=== PATIENT | female | born 1975 | race Caucasian/White ===

== ENCOUNTER 2020-06-18 12:19 | Emergency (ER) | payer OTHER, SELFPAY ==
[2020-06-18 12:45] VITALS: BP 144/85; PULSE 99; RESP 15; TEMP 36.6; O2SAT 99; BMI 32.5
--- NOTE | 2020-06-18 13:44 | ED_ITS ---
HPI - Ear Problem General Chief complaint: Ear Problems Stated complaint: ear pain Time Seen by Provider: 06/18/20 13:35 Source: patient Mode of arrival: ambulatory Limitations: no limitations History of Present Illness HPI Narrative: Bilateral Ear pain x1 week. History of otitis media. Feels similar. No drainage, fevers, chills, body aches, cough. MD Complaint: ear pain Location: bilateral Duration: constant Severity: moderate Relieving factors: nothing Exacerbating factors: nothing Discharge from ear: no Treatment prior to arrival: none Related Data Previous Rx's Medication Instructions Recorded cefpodoxime 200 mg PO Q12H #14 tab 06/18/20 ciprofloxacin-dexamethasone 4 drp OTIC (EARS) BID 7 Days #7.5 06/18/20 [Ciprodex] ml ibuprofen 600 mg PO Q8H PRN #20 tab 06/18/20 Allergies Allergy/AdvReac Type Severity Reaction Status Date / Time penicillin V Allergy Unknown almost Unverified 09/22/18 00:00 dies when child afte r PCN while in hospital Penicillins [PENICILLINS] Allergy Unknown ANAPHYLAXIS Unverified 03/15/20 18:36 Review of Systems Review of Systems: Yes all other systems are reviewed and are negative Constitutional: Constitutional: Reports no additional constitutional complaints, Denies body ache(s), Denies chills, Denies fever(s), Denies headache(s) and Denies weakness Eyes: Eyes: Reports no additional eye complaints and Denies change in vision ENT: Reports system reviewed and no additional complaints, except as documented, Denies dizziness, Denies ear discharge, Reports otalgia, Denies headache(s), Denies nasal congestion, Denies nasal discharge and Denies neck pain Cardiovascular: Cardiovascular: Reports no additional cardiovascular complaints, Denies chest pain, Denies leg edema and Denies dyspnea Respiratory: Respiratory: Reports no additional respiratory complaints, Denies cough and Denies dyspnea Gastrointestinal: Gastrointestinal: Reports no additional gastrointestinal complaints, Denies abdominal pain, Denies diarrhea, Denies nausea and Denies vomiting Genitourinary: Genitourinary: Reports no additional female genitourinary complaints and Denies urinary incontinence Musculoskeletal: Musculoskeletal: Reports no additional musculoskeletal complaints, Denies back pain, Denies arthralgias, Denies joint swelling, Denies neck pain, Denies numbness and Denies tingling Integumentary/Breasts: Skin/Breast: Reports system reviewed and no additional complaints, except as docu and Denies rash Neurologic: Reports system reviewed and no additional complaints, except as documented, Denies Abnormal speech present, Denies dizziness, Denies headache(s), Denies numbness, Denies tingling and Denies weakness PMFSH Past Medical History Attestation statement: The following information was validated with the patient. Source: old records reviewed and nursing notes reviewed Social History Social History Advance Directives: No Advance Directives Information Provided: No Physical Exam Vital Signs: Vital Signs: Last Vital Signs Temp 98 F 06/18/20 12:45 Pulse 99 06/18/20 12:45 Resp 15 06/18/20 12:45 BP 144/85 H 06/18/20 12:45 Pulse Ox 99 06/18/20 12:45 Body Mass Index 32.5 Const: General: cooperative, healthy appearing, comfortable and no acute distr ess Orientation/consciousness: patient oriented x3 Limitations: no limitations HENMT: Head: Yes normal to inspection Ears: hearing grossly normal bilaterally, mastoids normal, no periauricular adenopathy and TM abnormal (Bilateral) bulging, dull, erythematous and with loss of landmarks General nose exam: Normal external nose present Face and sinus: Yes normal facial exam Mouth: Normal oral and palatal mucosa present Throat: Yes posterior oropharynx normal Eyes: General: appearance normal, both eyes and all related structures Pupils: Equal, round and reactive pupils present Neck: Neck: Yes normal visual inspection Chest: Chest palpation & inspection: normal inspection of the chest Resp: Effort & Inspection: normal respiratory effort Auscultation: clear to auscultation bilaterally Cardio: Rate: regular rate Rhythm: regular rhythm Peripheral pulses: Peripheral pulses 2+ throughout GI: Inspection: Yes normal to inspection Palpation (GI): Soft to palpation and nontender Auscultation: normal bowel sounds Back/Spine/Pelvis: Thoracic/Lumbar Spine: thoracic and lumbar spine normal to inspection Skin: General skin exam: no rashes or lesions noted Neuro: General: patient oriented x3, no focal motor deficits and normal sensation to monofilament Cranial nerves: Yes Equal, round and reactive pupils present Cognition (Neuro): normal cognition Speech: No Abnormal speech present Gait exam (Neuro): Normal gait present Motor exam (neuro): 5/5 motor strength present throughout Extrem: General: Yes normal to inspection Course Course Course Narrative: 45-year-old female here with bilateral ear pain x1 week. Exam is consistent with otitis media. There is no mastoid tenderness or lymphadenopathy concerning for mastoiditis. Will start patient on oral antibiotics as well as drops. The patient tells me that she has a penicillin allergy but she has been able to take cephalosporins previously. Reviewed worrisome signs and symptoms and when to return to the emergency department. Comfortable discharge home. Discharge Plan Discharge Clinical Impression: Otitis media Qualifiers: Otitis media type: unspecified Chronicity: acute Qualified Code(s): H66.90 - Otitis media, unspecified, unspecified ear Patient Disposition: Home, Self-Care Instructions: Ear Infection (ED) Additional Instructions: Start antibiotics as soon as possible. Take them until they are gone. Take Motrin Tylenol alternating for pain or fever as needed Prescriptions: New ibuprofen 600 mg tablet 600 mg PO Q8H PRN (Reason: pain) Qty: 20 RF: 0 ciprofloxacin-dexamethasone [Ciprodex] 0.3-0.1 % drops,suspension 4 drp otic (ears) BID 7 Days Qty: 7.5 RF: 0 cefpodoxime 100 mg tablet 200 mg PO Q12H Qty: 14 RF: 0 Referrals: Physician,None [Primary Care Provider] - 2 days Interventions: ED Discharge Assessment Last Done: 06/18/20 13:52 Discharge Date/Time: 06/18/20 13:57
== END 2020-06-18 13:57 | disposition home or self-care (01) ==
LOC: HO.ED 13:52
PROVIDERS: Emergency Provider Emergency Medicine
DX: H66.93 Otitis media, unspecified, bilateral (principal)
CPT/HCPCS: 99283

== ENCOUNTER 2020-12-05 14:38 | Emergency (ER) | payer OTHER, SELFPAY ==
--- NOTE | ~2020-12-05 | US_ITS ---
EXAMINATION: US ABDOMEN LIMITED CLINICAL INFORMATION: Right upper quadrant pain. COMPARISON: None TECHNIQUE: Real-time imaging of the right upper quadrant abdominal viscera. FINDINGS: PANCREAS: Normal. LIVER: The liver is enlarged measuring over 17 cm in greatest length and demonstrates increased echogenicity consistent with hepatic steatosis. No focal hepatic lesion. There is no intrahepatic biliary duct dilatation seen. GALLBLADDER: The gallbladder is physiologically distended without evidence of stones, sludge, polyps, wall thickening or pericholecystic fluid. COMMON BILE DUCT: Normal in caliber measuring 0.3 cm in diameter. RIGHT KIDNEY: Normal. No hydronephrosis. No renal calculi or focal parenchymal lesions. The kidney measures 10.7 cm in maximum dimension. FREE FLUID: None. US/US abdomen limited IMPRESSION: Enlarged fatty liver.
[2020-12-05 16:40] VITALS: BP 145/75; PULSE 99; RESP 18; TEMP 37.1; O2SAT 99; BMI 34.3
[2020-12-05 20:01] VITALS: BP 136/77; PULSE 97; RESP 17; TEMP 37.2; O2SAT 99
--- NOTE | 2020-12-05 21:42 | ED_ITS ---
HPI - Abdominal Pain General Chief Complaint: Abdominal Pain Stated Complaint: ABD PAIN,PRESSURE Time Seen by Provider: 12/05/20 21:37 Source: patient Mode of arrival: ambulatory Limitations: no limitations History of Present Illness HPI narrative: Patient comes emergency room complaining of right upper quadrant pain. Patient states it has been going on for 2-3 months, however over the last month it has become more painful. Patient came today because her son made her come. Patient states that she has been complaining of right upper quadrant pain for several days in a row. Patient states the pain is constant, nonradiating, unrelated to meals MD elicited complaint: abdominal pain Related Data Previous Rx's Medication Instructions Recorded cefpodoxime 200 mg PO Q12H #14 tab 06/18/20 ciprofloxacin-dexamethasone 4 drp OTIC (EARS) BID 7 Days #7.5 06/18/20 [Ciprodex] ml ibuprofen 600 mg PO Q8H PRN #20 tab 06/18/20 levofloxacin 500 mg PO DAILY #6 tab 12/05/20 Allergies Allergy/AdvReac Type Severity Reaction Status Date / Time penicillin V Allergy Unknown almost Unverified 09/22/18 00:00 dies when child afte r PCN while in hospital Penicillins [PENICILLINS] Allergy Unknown ANAPHYLAXIS Unverified 03/15/20 18:36 Review of Systems Review of Systems Constitutional : No Weight loss, No Fever, No Chills, No Night Sweats, No Fatigue, No Malaise ENT/Mouth : No Hearing loss, No Ear Pain, No Nasal Congestion, No Sinus Pain, No Hoarseness, No sore throat, No Rhinorrhea, No Swallowing Difficulty Eyes: No Eye Pain, No Swelling, No Redness, No Foreign Body, No Discharge, No Vision Changes Cardiovascular : No Chest Pain, No SOB, No Dyspnea on Exertion, No Orthopnea, No Edema, No Palpitations Respiratory : No Cough, No Sputum, No Wheezing, No Smoke Exposure, No Dyspnea Gastrointestinal : No Nausea, No Vomiting, No Diarrhea, No Constipation, complaining of right upper quadrant pain, No Hematochezia, No Melena Genitourinary : no irregular bleeding, No Dysuria, No Urinary Frequency, No Hematuria, No Urinary Incontinence, No Urgency, No Flank Pain, No Urinary Flow Changes, No Hesitancy Musculoskeletal : No joint pain, No Myalgias, No Joint Swelling Skin : No Skin Lesions, No rash Neuro : No Weakness, No Numbness, No Paresthesias, No Loss of Consciousness, No Dizziness, No Headache Psych : No Anxiety/Panic, No Depression, No SI/HI/AH/VH, No Social Issues, Heme/Lymph: No Bruising, No Bleeding,No Lymphadenopathy Endocrine : No Polyuria, No Polydipsia, No Temperature Intolerance Physical Exam Vital Signs: Vital Signs: Last Vital Signs Temp 98.9 F 12/05/20 20:01 Pulse 97 12/05/20 20:01 Resp 17 12/05/20 20:01 BP 136/77 12/05/20 20:01 Pulse Ox 99 12/05/20 20:01 Body Mass Index 34.3 Appearance: Alert. Oriented X3. No acute distress. Eyes: Pupils equal, round and reactive to light. ENT: Pharynx normal. Neck: Normal inspection. Neck supple. No lymph nodes noted. No crepitus CVS: Normal heart rate and rhythm. Pulses normal. Normal S1 and S2 Respiratory: No respiratory distress. Breath sounds normal. No Wheezing. No rales Abdomen: Soft , tenderness to palpation over the right upper quadrant, borderline Randhawa's sign positive, no guarding, no rebound, No rigidity. No distention. Skin: Skin warm and dry. Normal skin color. Normal skin turgor. Extremities: No lower extremity edema. No lower extremity edema. No Lacerations. No Rash Neuro: Oriented X 3. No motor deficit. No sensory deficit. Moving all extermities. No slurred speech. Course Course Course Narrative: I discussed the labs and imaging with the patient, patient does have a UTI. I also discussed with the patient that she has fatty liver, patient is to change her diet, discussed that she will likely need to follow-up with her primary care physician, she may need a referral to a construction code administrator. Patient received the 1st dose of levofloxacin in the emergency room. MDM - Abdominal Pain Lab Data Result diagrams: 12/05/20 22:08 12/05/20 22:08 Labs: Lab Results 12/05/20 12/05/20 12/05/20 Range/Units 22:08 22:08 22:20 WBC 11.1 H (4.8-10.8) X10*3/uL RBC 4.88 (4.20-5.50) X10*6/uL Hgb 14.0 (12.0-16.0) g/dl Hct 41.4 (37-47) % MCV 84.8 (80-98) fL MCH 28.7 (27.0-33.0) pg MCHC 33.8 (31.0-35.0) g/dl RDW 13.3 (11.0-16.0) % Plt Count 276 (160-400) X10*3/uL MPV 10.6 (9.4-12.3) fL Immature Gran % (Auto) 0.2 (0.0-0.4) % Neut % (Auto) 45.5 (45-73) % Lymph % (Auto) 42.4 H (20-40) % [place] % (Auto) 7.3 (2-11) % Eos % (Auto) 3.9 (0-4) % Baso % (Auto) 0.7 (0-2) % Lymph # (Auto) 4.7 (1.2-4.9) X10*3/uL [place] # (Auto) 0.8 (0.1-1.2) X10*3/uL Eos # (Auto) 0.4 (0.0-0.4) X10*3/uL Baso # (Auto) 0.1 (0.0-0.2) X10*3/uL Abs Immat Gran (auto) 0.02 (0.00-0.03) X10*3/uL Absolute Neuts (auto) 5.0 (2.0-8.3) X10*3/uL Absolute Nucleated RBC 0.000 (0.0-0.012) X10*3/uL Nucleated RBC % (auto) 0.0 (0.0-0.2) /100WBC Sodium 142 (135-145) mmol/L Potassium 3.5 (3.3-5.1) mmol/L Chloride 107 (96-108) mmol/L Carbon Dioxide 29 (22-29) mmol/L Anion Gap 10 L (12-20) BUN 15 (9-16) mg/dL Creatinine 0.84 (0.5-1.4) mg/dL Estim Creat Clear Calc 90.3 Estimated GFR > 60 Random Glucose 99 (60-115) mg/dL Calcium 9.4 (8.4-10.2) mg/dL Total Bilirubin 0.7 (0.0-1.0) mg/dL Direct Bilirubin 0.3 (0.0-0.5) mg/dL AST 25 (5-31) U/L ALT 36 H (0-31) U/L Alkaline Phosphatase 82 (39-117) U/L Total Protein 7.3 (6.5-8.0) g/dL Albumin 4.2 (3.5-5.0) g/dL Lipase 19 (8-78) U/L Urine Color DARK YELLOW Urine Appearance CLOUDY Urine pH 6.0 (5.0-8.0) Ur Specific [place] >= 1.030 H (1.005-1.025) Urine Protein TRACE (NEG-TRACE) MG/DL Urine Glucose (UA) NEG (NEG) MG/DL Urine Ketones NEG (NEG) MG/DL Urine Blood 1+ H (NEG) Urine Nitrite POS H (NEG) Ur Leukocyte Esterase 1+ H (NEG) Urine RBC 0-2 (0) /HPF Urine WBC 10-14 H (0-4) /HPF Ur Squamous Epith Cells 4+ /LPF Urine Bacteria 3+ /LPF Urine Mucus 2+ /LPF Urine Test (NEGATIVE) 12/05/20 Range/Units 22:20 WBC (4.8-10.8) X10*3/uL RBC (4.20-5.50) X10*6/uL Hgb (12.0-16.0) g/dl Hct (37-47) % MCV (80-98) fL MCH (27.0-33.0) pg MCHC (31.0-35.0) g/dl RDW (11.0-16.0) % Plt Count (160-400) X10*3/uL MPV (9.4-12.3) fL Immature Gran % (Auto) (0.0-0.4) % Neut % (Auto) (45-73) % Lymph % (Auto) (20-40) % [place] % (Auto) (2-11) % Eos % (Auto) (0-4) % Baso % (Auto) (0-2) % Lymph # (Auto) (1.2-4.9) X10*3/uL [place] # (Auto) (0.1-1.2) X10*3/uL Eos # (Auto) (0.0-0.4) X10*3/uL Baso # (Auto) (0.0-0.2) X10*3/uL Abs Immat Gran (auto) (0.00-0.03) X10*3/uL Absolute Neuts (auto) (2.0-8.3) X10*3/uL Absolute Nucleated RBC (0.0-0.012) X10*3/uL Nucleated RBC % (auto) (0.0-0.2) /100WBC Sodium (135-145) mmol/L Potassium (3.3-5.1) mmol/L Chloride (96-108) mmol/L Carbon Dioxide (22-29) mmol/L Anion Gap (12-20) BUN (9-16) mg/dL Creatinine (0.5-1.4) mg/dL Estim Creat Clear Calc Estimated GFR Random Glucose (60-115) mg/dL Calcium (8.4-10.2) mg/dL Total Bilirubin (0.0-1.0) mg/dL Direct Bilirubin (0.0-0.5) mg/dL AST (5-31) U/L ALT (0-31) U/L Alkaline Phosphatase (39-117) U/L Total Protein (6.5-8.0) g/dL Albumin (3.5-5.0) g/dL Lipase (8-78) U/L Urine Color Urine Appearance Urine pH (5.0-8.0) Ur Specific [place] (1.005-1.025) Urine Protein (NEG-TRACE) MG/DL Urine Glucose (UA) (NEG) MG/DL Urine Ketones (NEG) MG/DL Urine Blood (NEG) Urine Nitrite (NEG) Ur Leukocyte Esterase (NEG) Urine RBC (0) /HPF Urine WBC (0-4) /HPF Ur Squamous Epith Cells /LPF Urine Bacteria /LPF Urine Mucus /LPF Urine Test NEGATIVE (NEGATIVE) Imaging Data US - abdomen: Radiologist's impression: FINDINGS: PANCREAS: Normal. LIVER: The liver is enlarged measuring over 17 cm in greatest length and demonstrates increased echogenicity consistent with hepatic steatosis. No focal hepatic lesion. There is no intrahepatic biliary duct dilatation seen. GALLBLADDER: The gallbladder is physiologically distended without evidence of stones, sludge, polyps, wall thickening or pericholecystic fluid. COMMON BILE DUCT: Normal in caliber measuring 0.3 cm in diameter. RIGHT KIDNEY: Normal. No hydronephrosis. No renal calculi or focal parenchymal lesions. The kidney measures 10.7 cm in maximum dimension. FREE FLUID: None. US/US abdomen limited IMPRESSION: Enlarged fatty liver. Discharge Plan Discharge Clinical Impression: UTI (urinary tract infection) Abdominal pain Qualifiers: Abdominal location: right upper quadrant Qualified Code(s): R10.11 - Right upper quadrant pain Patient Disposition: Home, Self-Care Instructions: Urinary Tract Infection in Women (ED), Abdominal Pain (ED) Additional Instructions: Please follow-up with your primary care physician tomorrow. If you have any worsening or new symptoms, please return to the emergency room or call 911 Prescriptions: New levofloxacin 500 mg tablet 500 mg PO DAILY Qty: 6 RF: 0 No Action ibuprofen 600 mg tablet 600 mg PO Q8H PRN (Reason: pain) Qty: 20 RF: 0 ciprofloxacin-dexamethasone [Ciprodex] 0.3-0.1 % drops,suspension 4 drp otic (ears) BID 7 Days Qty: 7.5 RF: 0 cefpodoxime 100 mg tablet 200 mg PO Q12H Qty: 14 RF: 0 PMFSH Past Medical History Medical History Affective bipolar disorder GERD (gastroesophageal reflux disease) Surgical History History of tubal ligation Hx of appendectomy Hx of breast reduction, elective Social History Social History Advance Directives: No Advance Directives Information Provided: Yes
[2020-12-05 22:11] LABS: MANUAL DIFF FLAG NO
[2020-12-05 22:12] LABS: Basophils Absolute Auto 0.1 X10*3/uL (0.0-0.2); Basophils Percent Auto 0.7 % (0-2); Eosinophils Absolute Auto 0.4 X10*3/uL (0.0-0.4); Eosinophils Percent Auto 3.9 % (0-4); Hematocrit 41.4 % (37-47); Imm Gran Abs Auto 0.02 X10*3/uL (0.00-0.03); Imm Gran Pct Auto 0.2 % (0.0-0.4); Lymphocytes Absolute Auto 4.7 X10*3/uL (1.2-4.9); Lymphocytes Percent Auto 42.4 % (20-40); Mean Corpuscular HGB Conc 33.8 g/dl (31.0-35.0); Mean Corpuscular Hemoglobin 28.7 pg (27.0-33.0); Mean Corpuscular Volume 84.8 fL (80-98); Mean Platelet Volume 10.6 fL (9.4-12.3); Monocytes Absolute Auto 0.8 X10*3/uL (0.1-1.2); Monocytes Percent Auto 7.3 % (2-11); Neutrophils Percent Auto 45.5 % (45-73); Platelet Count 276 X10*3/uL (160-400); Red Blood Count 4.88 X10*6/uL (4.20-5.50); Red Cell Distribution Width 13.3 % (11.0-16.0); White Blood Count 11.1 X10*3/uL (4.8-10.8)
[2020-12-05 22:32] LABS: UPreg QC Valid YES; Urine Pregnancy NEGATIVE (NEGATIVE)
[2020-12-05 22:33] LABS: Appearance Urine CLOUDY; Color Urine DARK YELLOW; Glucose Urine UA NEG (NEG); Leukocyte Esterase Urine 1+ (NEG); Nitrite Urine POS (NEG); Specific Gravity - Urine >= 1.030 (1.005-1.025); UACC Culture Trigger YES; Urine Blood 1+ (NEG); Urine Ketones NEG (NEG); Urine Protein TRACE MG/DL (NEG-TRACE)
[2020-12-05 22:37] LABS: Alanine Aminotransferase 36 U/L (0-31); Albumin Level 4.2 g/dL (3.5-5.0); Alkaline Phosphatase 82 U/L (39-117); Anion Gap 10 (12-20); Aspartate Amino Transferase 25 U/L (5-31); Bilirubin Direct 0.3 mg/dL (0.0-0.5); Bilirubin Total 0.7 mg/dL (0.0-1.0); Blood Urea Nitrogen 15 mg/dL (9-16); Calcium 9.4 mg/dL (8.4-10.2); Carbon Dioxide 29 mmol/L (22-29); Chloride 107 mmol/L (96-108); Creatinine Clr Calc Pharmacy 90.3; Estimated Glomerular Filt Rate > 60; Glucose Random 99 mg/dL (60-115); Lipase 19 U/L (8-78); Potassium 3.5 mmol/L (3.3-5.1); Sodium 142 mmol/L (135-145); Total Protein 7.3 g/dL (6.5-8.0)
[2020-12-05 22:39] LABS: Bacteria Urine 3+ /LPF; Mucus Urine 2+ /LPF; RBC Urine 0-2 /HPF (0); Squamous Epithelial Cell Urine 4+ /LPF
== END 2020-12-05 23:31 | disposition home or self-care (01) ==
PROVIDERS: Emergency Provider Emergency Medicine
DX: N39.0 Urinary tract infection, site not specified (principal); R10.11 Right upper quadrant pain; K76.0 Fatty (change of) liver, not elsewhere classified
CPT/HCPCS: 36415; 76705; 80048; 80076; 81001; 81003; 81025; 83690; 85025; 87086; 87088; 87186; 99283; 99284

== ENCOUNTER 2021-06-24 08:55 | Emergency (ER) | payer OTHER, SELFPAY ==
[2021-06-24 09:31] VITALS: BP 140/73; PULSE 109; RESP 18; TEMP 36.4; O2SAT 100; BMI 30.9
--- NOTE | 2021-06-24 11:09 | ED.EAR ---
HPI - Ear Problem General Chief complaint: Ear Problems Stated complaint: L/R Ear Infection Time Seen by Provider: 06/24/21 10:32 Source: patient Mode of arrival: ambulatory Limitations: no limitations History of Present Illness HPI Narrative: 46-year-old female here with bilateral ear pain right greater than left for 3 weeks. Patient also complains of itching from the ear. No drainage. No fevers, chills, upper respiratory symptoms. Related Data Previous Rx's Medication Instructions Recorded cefpodoxime 100 mg tablet 200 mg PO Q12H #14 tab 06/18/20 ciprofloxacin 0.3 %-dexamethasone 4 drp OTIC (EARS) BID 7 Days #7.5 06/18/20 0.1 % ear drops,suspension ml (Ciprodex) ibuprofen 600 mg tablet 600 mg PO Q8H PRN #20 tab 06/18/20 levofloxacin 500 mg tablet 500 mg PO DAILY #6 tab 12/05/20 azithromycin 250 mg tablet See Rx Instructions .ROUTE 06/24/21 .COMPLEX #6 tab ciprofloxacin 0.3 %-dexamethasone 4 drp OTIC (EARS) BID 7 Days #7.5 06/24/21 0.1 % ear drops,suspension ml (Ciprodex) triamcinolone acetonide 55 mcg 2 spray INTRANASAL DAILY #16.9 ml 06/24/21 nasal spray aerosol (Nasacort) Allergies Allergy/AdvReac Type Severity Reaction Status Date / Time penicillin V Allergy Unknown almost Unverified 09/22/18 00:00 dies when child afte r PCN while in hospital Penicillins [PENICILLINS] Allergy Unknown ANAPHYLAXIS Unverified 03/15/20 18:36 Review of Systems Review of Systems: Yes all other systems are reviewed and are negative Constitutional: Constitutional: Reports no additional constitutional complaints, Denies body ache(s), Denies chills, Denies fever(s), Denies headache(s) and Denies weakness Eyes: Eyes: Reports no additional eye complaints and Denies change in vision ENT: Reports system reviewed and no additional complaints, except as documented, Denies dizziness, Reports otalgia, Denies headache(s), Denies nasal congestion, Denies nasal discharge and Denies neck pain Comments: Ear itching Cardiovascular: Cardiovascular: Reports no additional cardiovascular complaints, Denies chest pain, Denies leg edema and Denies dyspnea Respiratory: Respiratory: Reports no additional respiratory complaints, Denies cough and Denies dyspnea Gastrointestinal: Gastrointestinal: Reports no additional gastrointestinal complaints, Denies abdominal pain, Denies diarrhea, Denies nausea and Denies vomiting Genitourinary: Genitourinary: Reports no additional female genitourinary complaints and Denies urinary incontinence Musculoskeletal: Musculoskeletal: Reports no additional musculoskeletal complaints, Denies back pain, Denies arthralgias, Denies joint swelling, Denies neck pain, Denies numbness and Denies tingling Integumentary/Breasts: Skin/Breast: Reports system reviewed and no additional complaints, except as docu and Denies rash Neurologic: Reports system reviewed and no additional complaints, except as documented, Denies Abnormal speech present, Denies dizziness, Denies headache(s), Denies numbness, Denies tingling and Denies weakness PMFSH Past Medical History Attestation statement: The following information was validated with the patient. Source: old records reviewed and nursing notes reviewed Medical History Affective bipolar disorder GERD (gastroesophageal reflux disease) Surgical History History of tubal ligation Hx of appendectomy Hx of breast reduction, elective Social History Social History Advance Directives: No Advance Directives Information Provided: No Patient : No Physical Exam Vital Signs: Vital Signs: Last Vital Signs Temp 97.5 F 06/24/21 09:31 Pulse 109 H 06/24/21 09:31 Resp 18 06/24/21 09:31 BP 140/73 H 06/24/21 09:31 Pulse Ox 100 06/24/21 09:31 BMI result Body Mass Index 30.9 Const: General: cooperative, healthy appearing, comfortable and no acute distress Orientation/consciousness: patient oriented x3 Limitations: no limitations HENMT: Head: Yes normal to inspection Ears: hearing grossly normal bilaterally, mastoids normal, no periauricular adenopathy, Abnormal EAC present (Bilateral mild canal swelling erythema) and TM abnormal (Bilateral TM bulging with erythema dull with effusion) General nose exam: Normal external nose present Face and sinus: Yes normal facial exam Mouth: Normal oral and palatal mucosa present Throat: Yes posterior oropharynx normal, Yes tonsils normal and Yes uvula midline Eyes: General: appearance normal, both eyes and all related structures Pupils: Equal, round and reactive pupils present Neck: Neck: Yes normal visual inspection, Yes full ROM, Yes no lymphadenopathy and Yes no meningeal signs Chest: Chest palpation & inspection: normal inspection of the chest Resp: Effort & Inspection: normal respiratory effort Auscultation: clear to auscultation bilaterally Cardio: Rate: regular rate Rhythm: regular rhythm Peripheral pulses: Peripheral pulses 2+ throughout GI: Inspection: Yes normal to inspection Palpation (GI): Soft to palpation and nontender Auscultation: normal bowel sounds Back/Spine/Pelvis: Thoracic/Lumbar Spine: thoracic and lumbar spine normal to inspection Skin: General skin exam: no rashes or lesions noted Neuro: General: patient oriented x3, no meningeal signs, no focal motor deficits and normal sensation to monofilament Cranial nerves: Yes Equal, round and reactive pupils present Cognition (Neuro): normal cognition Speech: No Abnormal speech present Gait exam (Neuro): Normal gait present Motor exam (neuro): 5/5 motor strength present throughout Extrem: General: Yes normal to inspection Course Course Course Narrative: 46-year-old female here with reports of bilateral ear pain right greater than left for several weeks with some ear itching. Exam is consistent with bilateral otitis media, otitis externa. No signs of mastoiditis Will treat with course of antibiotics as well as topical drops. Reviewed worrisome signs and symptoms of when to return to the emergency department. Comfortable discharge home. MDM - Ear Medical Records Attestation: I reviewed the patient's medical records. Lab Data Attestation: I reviewed the patient's lab results. Discharge Plan Discharge Clinical Impression: Otitis externa, Otitis media Patient Disposition: Home, Self-Care Instructions: Otitis Externa (ED), Ear Infection (ED) Prescriptions: New ciprofloxacin-dexamethasone [Ciprodex] 0.3-0.1 % drops,suspension 4 drp otic (ears) BID 7 Days Qty: 7.5 RF: 0 triamcinolone acetonide [Nasacort] 55 mcg aerosol,spray 2 spray intranasal DAILY Qty: 16.9 RF: 0 azithromycin 250 mg tablet See Rx Instructions .ROUTE .COMPLEX Qty: 6 RF: 0 No Action ibuprofen 600 mg tablet 600 mg PO Q8H PRN (Reason: pain) Qty: 20 RF: 0 ciprofloxacin-dexamethasone [Ciprodex] 0.3-0.1 % drops,suspension 4 drp otic (ears) BID 7 Days Qty: 7.5 RF: 0 cefpodoxime 100 mg tablet 200 mg PO Q12H Qty: 14 RF: 0 levofloxacin 500 mg tablet 500 mg PO DAILY Qty: 6 RF: 0 Referrals: Physician,Unknown J [Primary Care Provider] - 2 days Interventions: ED Discharge Assessment Last Done: 06/24/21 11:01
== END 2021-06-24 11:16 | disposition home or self-care (01) ==
PROVIDERS: Emergency Provider Emergency Medicine
DX: H66.93 Otitis media, unspecified, bilateral (principal); H60.93 Unspecified otitis externa, bilateral
CPT/HCPCS: 99283

== ENCOUNTER 2022-07-19 09:44 | Emergency (ER) | payer OTHER, SELFPAY ==
[2022-07-19 09:53] VITALS: BP 185/91; PULSE 101; RESP 16; TEMP 35.9; O2SAT 98; BMI 27.4
--- NOTE | 2022-07-19 09:56 | ED_ITS ---
HPI - General Adult General Chief complaint: General Medical Stated complaint: medication Time Seen by Provider: 07/19/22 09:50 Source: patient Mode of arrival: ambulatory Limitations: no limitations History of Present Illness HPI narrative: 47-year-old female presents to the ER for evaluation after she ran out of her Trileptal and Adderall. She states her provider who she has had for a long time just retired. She went to get refills and was told that there was no intra prescribe them for her. She has an intake with [employer] on Thursday so that she can get a new psychiatrist. They instructed her to come to the ER for emergency refills of her medications. She states she has been taking them appropriately. She takes extended-release Adderall 30 mg in the morning and 30 mg at 13:00. She did not take any today. She ran out yesterday. Last filled on 06/17/2022. She has no physical complaints and otherwise is feeling well besides some anxiety about getting a new provider. MD complaint: Medication refill Relieving factors: none Exacerbating factors: none Associated symptoms: denies other symptoms Treatments prior to arrival: none Related Data Previous Rx's Medication Instructions Recorded cefpodoxime 100 mg tablet 200 mg PO Q12H #14 tabs 06/18/20 ciprofloxacin 0.3 %-dexamethasone 4 drp otic (ears) BID 7 days #7.5 06/18/20 0.1 % ear drops,suspension mL (Ciprodex) ibuprofen 600 mg tablet 600 mg PO Q8H PRN pain #20 tabs 06/18/20 levofloxacin 500 mg tablet 500 mg PO DAILY #6 tabs 12/05/20 azithromycin 250 mg tablet See Rx Instructions PO .COMPLEX #6 06/24/21 tabs ciprofloxacin 0.3 %-dexamethasone 4 drp otic (ears) BID 7 days #7.5 06/24/21 0.1 % ear drops,suspension mL (Ciprodex) triamcinolone acetonide 55 mcg 2 spray intranasal DAILY #16.9 mL 06/24/21 nasal spray aerosol (Nasacort) dextroamphetamine-amphetamine ER 30 mg PO BID #20 caps 07/19/22 30 mg 24hr capsule,extend release (Adderall XR) oxcarbazepine 300 mg tablet 300 mg PO BID #20 tabs 01/21/23 (Trileptal) Allergies Allergy/AdvReac Type Severity Reaction Status Date / Time penicillin V Allergy Unknown almost Verified 07/19/22 09:59 dies when child afte r PCN while in hospital Penicillins [PENICILLINS] Allergy Unknown ANAPHYLAXIS Verified 07/19/22 09:59 Review of Systems Review of Systems: Yes all other systems are reviewed and are negative [facility] Past Medical History Medical History Affective bipolar disorder GERD (gastroesophageal reflux disease) Surgical History History of tubal ligation Hx of appendectomy Hx of breast reduction, elective Social History Social History Alcohol intake: never Smoked in Last 30 Days: No Use of substances other than those prescribed or required for medical reasons: Yes Substance Use Type: Marijuana Advance Directives: No Advance Directives Information Provided: Yes Patient : No Physical Exam ED Vital Signs: Vital Signs - 24 hr 07/19/22 09:53 Temperature 96.6 F L Pulse Rate 101 H Respiratory Rate 16 Blood Pressure 185/91 H Pulse Oximetry 98 Oxygen Delivery Method Room Air BMI result Body Mass Index 27.4 Appearance: Alert. Oriented X3. No acute distress. HEENT: normal inspection Respiratory: No respiratory distress. Skin: Normal skin color.. No rashes. Extremities: Normal inspection x4 Neuro: Oriented X 3. Grossly normal, nonfocal normal speech and cognition. Steady gait Course Course Course Narrative: 47-year-old female presenting to the ER for evaluation and medication refill. She needs her Adderall and Trileptal refilled. Her [employer] has been reviewed. She has had the same provider in the same doses of her Adderall for a long time. Comfortable giving a 10 day supply of these medications until she can find a new provider. Patient agrees with plan. Stable for discharge home. She will follow-up with [employer] [facility] on Thursday. Medical Decision Making Differential Diagnosis Differential Diagnoses: The differential diagnosis associated with the presentation includes med refill, withdrawal, anxiety, ADHD, abuse of controlled substance External Record Review External record reviewed: Outpatient record and Prior outpatient labs Prescription Management I considered prescription management with: Other [employer] reviewed - she has been prescribed adderall xl 30 mg BID for significant amount of time by the same provider, last was fill 06/17 for a 30 day supply. will provide 10 day supply of her adderall and tripletal until she can find a psychatric prescriber. Critical Care Time Critical Care Time Critical Care Time: No Discharge Plan Discharge Clinical Impression: ADHD Patient Disposition: Home, Self-Care Instructions: ADHD in Adults (ED) Additional Instructions: Follow up with a psychiatrist to continue prescribing your medications as soon as possible. Prescriptions: New dextroamphetamine-amphetamine [Adderall XR] 30 mg capsule,extended release 24hr 30 mg PO BID Qty: 20 0RF Rx Instructions: Partial Fill upon patient request. oxcarbazepine [Trileptal] 300 mg tablet 300 mg PO BID Qty: 20 0RF No Action ibuprofen 600 mg tablet 600 mg PO Q8H PRN (Reason: pain) Qty: 20 0RF ciprofloxacin-dexamethasone [Ciprodex] 0.3-0.1 % drops,suspension 4 drp otic (ears) BID 7 Days Qty: 7.5 0RF cefpodoxime 100 mg tablet 200 mg PO Q12H Qty: 14 0RF Rx Instructions: must administer with a meal/food levofloxacin 500 mg tablet 500 mg PO DAILY Qty: 6 0RF ciprofloxacin-dexamethasone [Ciprodex] 0.3-0.1 % drops,suspension 4 drp otic (ears) BID 7 Days Qty: 7.5 0RF triamcinolone acetonide [Nasacort] 55 mcg aerosol,spray 2 spray intranasal DAILY Qty: 16.9 0RF Rx Instructions: administer into each nostril azithromycin 250 mg tablet See Rx Instructions .ROUTE .COMPLEX Qty: 6 0RF Rx Instructions: For 250 mg dose pack: take 500 mg today (day 1), then 250 mg for 4 days (days 2-5)
== END 2022-07-19 10:09 | disposition home or self-care (01) ==
LOC: HO.ED 10:04
PROVIDERS: Emergency Provider Emergency Medicine
DX: F90.9 Attention-deficit hyperactivity disorder, unspecified type (principal); F12.90 Cannabis use, unspecified, uncomplicated
CPT/HCPCS: 99282; 99283

== ENCOUNTER 2022-08-13 10:45 | Emergency (ER) | payer OTHER, SELFPAY ==
[2022-08-13 11:08] VITALS: BP 172/92; PULSE 100; RESP 19; TEMP 36.6; O2SAT 100; BMI 27.4
--- NOTE | 2022-08-13 11:08 | ED.GENADULT ---
HPI - General Adult General Chief complaint: General Medical Stated complaint: medication refill Time Seen by Provider: 08/13/22 11:15 Source: patient Mode of arrival: ambulatory Limitations: no limitations History of Present Illness HPI narrative: Patient is a 47-year-old female who presents emergency department requesting a medication refill. She states that a few days ago she ran out of her Trileptal and Adderall which she was prescribed from the emergency department. Patient had a previous prescriber who she had a relationship with for a long time, she retired in June suddenly, and patient states that she had no forewarning. She was instructed to come to the emergency department to receive medication refills. She does state that she tried to space out her medication dosages and she only received a 10 day supply, but she has ran out. She is taking Adderall 30 mg extended release in the morning and afternoon, Trileptal 300 mg twice daily. Related Data Previous Rx's Medication Instructions Recorded cefpodoxime 100 mg tablet 200 mg PO Q12H #14 tabs 06/18/20 ciprofloxacin 0.3 %-dexamethasone 4 drp otic (ears) BID 7 days #7.5 06/18/20 0.1 % ear drops,suspension mL (Ciprodex) ibuprofen 600 mg tablet 600 mg PO Q8H PRN pain #20 tabs 06/18/20 levofloxacin 500 mg tablet 500 mg PO DAILY #6 tabs 12/05/20 azithromycin 250 mg tablet See Rx Instructions PO .COMPLEX #6 06/24/21 tabs ciprofloxacin 0.3 %-dexamethasone 4 drp otic (ears) BID 7 days #7.5 06/24/21 0.1 % ear drops,suspension mL (Ciprodex) triamcinolone acetonide 55 mcg 2 spray intranasal DAILY #16.9 mL 06/24/21 nasal spray aerosol (Nasacort) dextroamphetamine-amphetamine ER 30 mg PO BID #20 caps 07/19/22 30 mg 24hr capsule,extend release (Adderall XR) oxcarbazepine 300 mg tablet 300 mg PO BID #20 tabs 07/19/22 (Trileptal) dextroamphetamine-amphetamine ER 30 mg PO BID 7 days #14 caps 08/13/22 30 mg 24hr capsule,extend release (Adderall XR) oxcarbazepine 300 mg tablet 300 mg PO BID 7 days #14 tabs 08/13/22 (Trileptal) Allergies Allergy/AdvReac Type Severity Reaction Status Date / Time penicillin V Allergy Unknown almost Verified 08/13/22 11:11 dies when child afte r PCN while in hospital Penicillins [PENICILLINS] Allergy Unknown ANAPHYLAXIS Verified 08/13/22 11:11 Review of Systems Review of Systems: Yes all other systems are reviewed and are negative [facility] Past Medical History Attestation statement: The following information was validated with the patient. Source: old records reviewed Medical History Affective bipolar disorder GERD (gastroesophageal reflux disease) Surgical History History of tubal ligation Hx of appendectomy Hx of breast reduction, elective Social History Social History Alcohol intake: never Substance Use Type: Marijuana Advance Directives: No Advance Directives Information Provided: Yes Physical Exam ED Appearance: Alert.?Oriented to person, place and time. No acute distress.?Normal affect.? CVS: Heart sounds normal. Normal heart rate and rhythm.? Pulses normal.?? Respiratory: No respiratory distress.? Lung sounds clear to auscultation bilaterally?? Skin: Skin warm and dry.? Normal skin color.? Extremities: Normal inspection times or Neuro: Moves all extremities spontaneously. No focal neuro deficits. Ambulates with normal steady gait. Medical Decision Making Medical Decision Making MDM Narrative: Patient is a 47-year-old female presenting to emergency department requesting medication refill. I reviewed [employer]ENDER, she was previously being prescribed Adderall XL 300 mg twice daily for significant amount of time, she received an additional prescription 07/19/2022 from this emergency department for a 10 day supply, it has been greater than 10 days since this visit. I discussed with patient I will provide an additional 7 day supply of her Adderall intra left all until she can establish care with a psychiatric prescriber. She has an appointment with a new primary care provider September 16 2022 Salima Kwok, and has a new therapist appointment this Thursday through [facility]. Discussed avenues on having her medications prescribed, as she may not have success getting them prescribed continuously from the emergency department. She verbalizes understanding. Differential Diagnosis Differential Diagnoses: The differential diagnosis associated with the presentation includes (Medication refill, withdrawal, anxiety, ADHD, abuse of controlled substance) External Record Review External record reviewed: Outpatient record Prescription Management I considered prescription management with: Other (CALENDER TENDER reviewed as noted above) Discharge Plan Discharge Clinical Impression: ADHD Patient Disposition: Home, Self-Care Instructions: ADHD in Adults (ED) Additional Instructions: As we discussed, you should consider calling the office of your previous prescriber, to determine whether there is anybody who is taking over her patient's, as they may be able to assist you in continued management. If not, they may be able to assist continued prescribing into you are able to establish care with a new med prescriber. Furthermore, I advised that you contact [facility] to determine when you can anticipate establishing a new patient care relationship. A prescription for your medications has been sent to the pharmacy for a 1 week supply. Prescriptions: New dextroamphetamine-amphetamine [Adderall XR] 30 mg capsule,extended release 24hr 30 mg PO BID 7 Days Qty: 14 0RF Rx Instructions: Partial Fill upon patient request. oxcarbazepine [Trileptal] 300 mg tablet 300 mg PO BID 7 Days Qty: 14 0RF No Action ibuprofen 600 mg tablet 600 mg PO Q8H PRN (Reason: pain) Qty: 20 0RF ciprofloxacin-dexamethasone [Ciprodex] 0.3-0.1 % drops,suspension 4 drp otic (ears) BID 7 Days Qty: 7.5 0RF cefpodoxime 100 mg tablet 200 mg PO Q12H Qty: 14 0RF Rx Instructions: must administer with a meal/food levofloxacin 500 mg tablet 500 mg PO DAILY Qty: 6 0RF ciprofloxacin-dexamethasone [Ciprodex] 0.3-0.1 % drops,suspension 4 drp otic (ears) BID 7 Days Qty: 7.5 0RF triamcinolone acetonide [Nasacort] 55 mcg aerosol,spray 2 spray intranasal DAILY Qty: 16.9 0RF Rx Instructions: administer into each nostril azithromycin 250 mg tablet See Rx Instructions .ROUTE .COMPLEX Qty: 6 0RF Rx Instructions: For 250 mg dose pack: take 500 mg today (day 1), then 250 mg for 4 days (days 2-5) dextroamphetamine-amphetamine [Adderall XR] 30 mg capsule,extended release 24hr 30 mg PO BID Qty: 20 0RF Rx Instructions: Partial Fill upon patient request. oxcarbazepine [Trileptal] 300 mg tablet 300 mg PO BID Qty: 20 0RF Referrals: Carol Kwok FNP [Primary Care Provider] - Discharge Date/Time: 08/13/22 11:32
== END 2022-08-13 11:32 | disposition home or self-care (01) ==
PROVIDERS: Emergency Provider Student in an Organized Health Care Education/Training Program; PCP Nurse Practitioner Family
DX: F90.9 Attention-deficit hyperactivity disorder, unspecified type (principal); Z76.0 Encounter for issue of repeat prescription; F31.9 Bipolar disorder, unspecified; F12.90 Cannabis use, unspecified, uncomplicated
CPT/HCPCS: 99282; 99283

== ENCOUNTER 2022-09-23 13:19 | Emergency (ER) | payer OTHER, SELFPAY ==
[2022-09-23 13:36] VITALS: BP 204/105; PULSE 102; RESP 18; TEMP 36.6; O2SAT 100; BMI 27.4
--- NOTE | 2022-09-23 13:37 | ED_ITS ---
HPI - Recheck/Abnormal Lab/Rx General Chief Complaint: General Medical <ODILIA Chin - Last Filed: 09/23/22 13:39> Stated Complaint: Medication refill <ODILIA Chin - Last Filed: 09/23/22 13:39> Time Seen by Provider: 09/23/22 13:47 <ODILIA Chin - Last Filed: 09/23/22 13:39> Source: patient and RN notes reviewed <Dylan Marina - Last Filed: 09/23/22 20:44> Mode of arrival: ambulatory <Dylan Marina - Last Filed: 09/23/22 20:44> Limitations: no limitations <Dylan Marina - Last Filed: 09/23/22 20:44> History of Present Illness HPI narrative: 47-year-old female past medical history significant for ADHD, bipolar disorder presents for evaluation and medication refill. Patient has been seen here twice now last 2 months for medication refill as her PCP she with previously been prescribing her Adderall 30 mg extended release and Trileptal 300 mg retired. She reports that her PCP cancel the appointment that was scheduled for last week and rescheduled for November 05, 2022. Patient has no complaints. <Dylan Marina - Last Filed: 09/23/22 20:44> Related Data Home Medications: Previous Rx's Medication Instructions Recorded cefpodoxime 100 mg tablet 200 mg PO Q12H #14 tabs 06/18/20 ciprofloxacin 0.3 %-dexamethasone 4 drp otic (ears) BID 7 days #7.5 06/18/20 0.1 % ear drops,suspension mL (Ciprodex) ibuprofen 600 mg tablet 600 mg PO Q8H PRN pain #20 tabs 06/18/20 levofloxacin 500 mg tablet 500 mg PO DAILY #6 tabs 12/05/20 azithromycin 250 mg tablet See Rx Instructions PO .COMPLEX #6 06/24/21 tabs ciprofloxacin 0.3 %-dexamethasone 4 drp otic (ears) BID 7 days #7.5 06/24/21 0.1 % ear drops,suspension mL (Ciprodex) triamcinolone acetonide 55 mcg 2 spray intranasal DAILY #16.9 mL 06/24/21 nasal spray aerosol (Nasacort) dextroamphetamine-amphetamine ER 30 mg PO BID #20 caps 07/19/22 30 mg 24hr capsule,extend release (Adderall XR) oxcarbazepine 300 mg tablet 300 mg PO BID #20 tabs 07/19/22 (Trileptal) dextroamphetamine-amphetamine ER 30 mg PO BID 7 days #14 caps 08/13/22 30 mg 24hr capsule,extend release (Adderall XR) oxcarbazepine 300 mg tablet 300 mg PO BID 7 days #14 tabs 08/13/22 (Trileptal) dextroamphetamine-amphetamine ER 30 mg PO BID #28 caps 09/23/22 30 mg 24hr capsule,extend release (Adderall XR) oxcarbazepine 300 mg tablet 300 mg PO BID #28 tabs 09/23/22 (Trileptal) <ODILIA Chin - Last Filed: 09/23/22 13:39> Allergies/Adverse Reactions: Allergies Allergy/AdvReac Type Severity Reaction Status Date / Time penicillin V Allergy Unknown almost Verified 08/13/22 11:11 dies when child afte r PCN while in hospital Penicillins [PENICILLINS] Allergy Unknown ANAPHYLAXIS Verified 08/13/22 11:11 <ODILIA Chin - Last Filed: 09/23/22 13:39> Review of Systems Constitutional: Constitutional: Reports as per HPI, Denies chills, Denies fatigue and Denies fever(s) <Dylan Marina - Last Filed: 09/23/22 20:44> Cardiovascular: Cardiovascular: Denies chest pain and Denies dyspnea <Dylan Marina - Last Filed: 09/23/22 20:44> Respiratory: Respiratory: Denies cough and Denies dyspnea <Dylan Marina - Last Filed: 09/23/22 20:44> Gastrointestinal: Gastrointestinal: Denies abdominal pain, Denies constipation and Denies vomiting <Dylan Marina - Last Filed: 09/23/22 20:44> Genitourinary: Genitourinary: Denies dysuria <Dylan Marina - Last Filed: 09/23/22 20:44> Neurologic: Denies focal weakness <Dylan Marina - Last Filed: 09/23/22 20:44> Endocrine: Endocrine: Denies fatigue <Dylan Marina - Last Filed: 09/23/22 20:44> PMFSH Past Medical History Medical History: Medical History Affective bipolar disorder GERD (gastroesophageal reflux disease) <ODILIA Chin - Last Filed: 09/23/22 13:39> Surgical History: Surgical History History of tubal ligation Hx of appendectomy Hx of breast reduction, elective <ODILIA Chin - Last Filed: 09/23/22 13:39> Social History Social History: Social History Alcohol intake: never Substance Use Type: Marijuana Advance Directives: No Advance Directives Information Provided: Yes <ODILIA Chin - Last Filed: 09/23/22 13:39> Physical Exam Vital Signs: Vital Signs: Last Vital Signs Temp 97.9 F 09/23/22 13:36 Pulse 82 09/23/22 14:22 Resp 12 09/23/22 14:22 BP 157/81 H 09/23/22 14:22 Pulse Ox 100 09/23/22 14:22 O2 Del Method Room Air 09/23/22 14:22 BMI result Body Mass Index 27.4 <ODILIA Chin - Last Filed: 09/23/22 13:39> Vital Signs: Last Vital Signs Temp 97.9 F 09/23/22 13:36 Pulse 82 09/23/22 14:22 Resp 12 09/23/22 14:22 BP 157/81 H 09/23/22 14:22 Pulse Ox 100 09/23/22 14:22 O2 Del Method Room Air 09/23/22 14:22 BMI result Body Mass Index 27.4 <Dylan Marina - Last Filed: 09/23/22 20:44> Const: General: healthy appearing, comfortable, no acute distress, alert and awake <Dylan Marina - Last Filed: 09/23/22 20:44> Nutritional Appearance: well nourished <Dylan Marina - Last Filed: 09/23/22 20:44> Orientation/consciousness: patient oriented x3 <Dylan Marina Last Filed: 09/23/22 20:44> Resp: Effort & Inspection: normal respiratory effort, able to speak in complete sentences, no audible wheezes and not labored <Dylan Collins Last Filed: 09/23/22 20:44> Auscultation: clear to auscultation bilaterally <Dylan OSan Bernardino - Last Filed: 09/23/22 20:44> Cardio: Rate: regular rate <Dylan OJesus - Last Filed: 09/23/22 20:44> Rhythm: regular rhythm <Dylan O Last Filed: 09/23/22 20:44> GI: Inspection: No distended <Dylan OSan Bernardino - Last Filed: 09/23/22 20:44> Palpation (GI): Soft to palpation, not firm, nontender, no guarding and not rigid <Dylan OSan Bernardino - Last Filed: 09/23/22 20:44> Auscultation: normoactive bowel sounds <Dylanselene Collins Last Filed: 09/23/22 20:44> Skin: General skin exam: no rashes or lesions noted and elasticity normal <Dylanselene Collins Last Filed: 09/23/22 20:44> Neuro: General: patient oriented x3 <Dylanselene Collins Last Filed: 09/23/22 20:44> Cranial nerves: Yes Bilaterally intact EOM present <Dylanselene Collins Last Filed: 09/23/22 20:44> Cognition (Neuro): normal cognition <Dylanselene Collins Last Filed: 09/23/22 20:44> Course Course Course Narrative: JUSTINE-13:40pm - 47yoF reports she is here for medication refill for her Adderall and Trileptal last took a few days ago. She had an appointment on the although they canceled therefore she does not know what to do at this time. Reports that she has a new appointment on November 05 although cannot wait that long. Her blood pressure is noted to be elevated in triage at 205/104. Reports increased anxiety denies any other symptoms complaints or concerns at this time. Plan: Due to elevated blood pressure patient should be monitored and recheck blood pressure patient to be seen in [facility]. <ODILIA Chin - Last Filed: 09/23/22 13:39> Medical Decision Making Medical Decision Making MDM Narrative: I reviewed the patient's last 2 visits in June and July negative for medication refills. It does appear the patient is attempting to get outpatient care established for her medications. Mass Pat reviewed. I agree to give the patient a short course of her medications and she will follow-up with her new primary doctor <Dylan Marina - Last Filed: 09/23/22 20:44> Differential Diagnosis ADHD Medication refill Bipolar disorder Medication noncompliance <Dylan Marina - Last Filed: 09/23/22 20:44> Discharge Plan Discharge Clinical Impression: ADHD <ODILIA Chin - Last Filed: 09/23/22 13:39> Patient Disposition: Home, Self-Care <ODILIA Chin - Last Filed: 09/23/22 13:39> Instructions: ADHD in Adults (ED) <ODILIA Chin - Last Filed: 09/23/22 13:39> Additional Instructions: Follow-up outpatient care with your primary doctor to establish long-term prescription follow-up Take all your medications as prescribed <ODILIA Chin - Last Filed: 09/23/22 13:39> Prescriptions: New dextroamphetamine-amphetamine [Adderall XR] 30 mg capsule,extended release 24hr 30 mg PO BID Qty: 28 0RF Rx Instructions: Partial Fill upon patient request. oxcarbazepine [Trileptal] 300 mg tablet 300 mg PO BID Qty: 28 0RF No Action ibuprofen 600 mg tablet 600 mg PO Q8H PRN (Reason: pain) Qty: 20 0RF ciprofloxacin-dexamethasone [Ciprodex] 0.3-0.1 % drops,suspension 4 drp otic (ears) BID 7 Days Qty: 7.5 0RF cefpodoxime 100 mg tablet 200 mg PO Q12H Qty: 14 0RF Rx Instructions: must administer with a meal/food levofloxacin 500 mg tablet 500 mg PO DAILY Qty: 6 0RF ciprofloxacin-dexamethasone [Ciprodex] 0.3-0.1 % drops,suspension 4 drp otic (ears) BID 7 Days Qty: 7.5 0RF triamcinolone acetonide [Nasacort] 55 mcg aerosol,spray 2 spray intranasal DAILY Qty: 16.9 0RF Rx Instructions: administer into each nostril azithromycin 250 mg tablet See Rx Instructions .ROUTE .COMPLEX Qty: 6 0RF Rx Instructions: For 250 mg dose pack: take 500 mg today (day 1), then 250 mg for 4 days (days 2-5) dextroamphetamine-amphetamine [Adderall XR] 30 mg capsule,extended release 24hr 30 mg PO BID Qty: 20 0RF Rx Instructions: Partial Fill upon patient request. oxcarbazepine [Trileptal] 300 mg tablet 300 mg PO BID Qty: 20 0RF dextroamphetamine-amphetamine [Adderall XR] 30 mg capsule,extended release 24hr 30 mg PO BID 7 Days Qty: 14 0RF Rx Instructions: Partial Fill upon patient request. oxcarbazepine [Trileptal] 300 mg tablet 300 mg PO BID 7 Days Qty: 14 0RF <ODILIA Chin - Last Filed: 09/23/22 13:39> Interventions: ED Discharge Assessment Last Done: 09/23/22 14:44 <ODILIA Chin - Last Filed: 09/23/22 13:39> Discharge Date/Time: 09/23/22 14:44 <ODILIA Chin - Last Filed: 09/23/22 13:39>
[2022-09-23 14:22] VITALS: BP 157/81; PULSE 82; RESP 12; O2SAT 100
== END 2022-09-23 14:44 | disposition home or self-care (01) ==
PROVIDERS: Emergency Provider Emergency Medicine; PCP Nurse Practitioner Family
DX: Z76.0 Encounter for issue of repeat prescription (principal); F90.9 Attention-deficit hyperactivity disorder, unspecified type
CPT/HCPCS: 99282

== ENCOUNTER 2023-01-01 15:41 | Outpatient (REF) | payer OTHER, SELFPAY ==
[2023-01-01 15:53] LABS: MANUAL DIFF FLAG NO
[2023-01-01 17:18] LABS: Basophils Absolute Auto 0.1 X10*3/uL (0.0-0.2); Basophils Percent Auto 1.1 % (0-2); Eosinophils Absolute Auto 0.3 X10*3/uL (0.0-0.4); Eosinophils Percent Auto 2.8 % (0-4); Hematocrit 42.1 % (37.0-47.0); Hemoglobin 14.2 g/dl (12.0-16.0); Imm Gran Abs Auto 0.05 X10*3/uL (0.00-0.03); Imm Gran Pct Auto 0.4 % (0.0-0.4); Lymphocytes Absolute Auto 4.5 X10*3/uL (1.2-4.9); Lymphocytes Percent Auto 39.6 % (20-40); Mean Corpuscular HGB Conc 33.7 g/dl (31.0-35.0); Mean Corpuscular Hemoglobin 29.1 pg (27.0-33.0); Mean Corpuscular Volume 86.3 fL (80.0-98.0); Mean Platelet Volume 12.3 fL (9.4-12.3); Monocytes Absolute Auto 0.7 X10*3/uL (0.1-1.2); Monocytes Percent Auto 6.5 % (2-11); Neutrophils Absolute Auto 5.6 x10*3/uL (2.0-8.3); Neutrophils Percent Auto 49.6 % (45-73); Platelet Count 207 X10*3/uL (160-400); Red Blood Count 4.88 X10*6/uL (4.20-5.50); Red Cell Distribution Width 13.2 % (11.0-16.0); White Blood Count 11.3 X10*3/uL (4.8-10.8)
== END 2023-01-01 15:42 | disposition home or self-care (01) ==
LOC: HO.LAB 15:41
PROVIDERS: PCP Nurse Practitioner Family; Visit Provider Nurse Practitioner Family
DX: Z76.89 Persons encountering health services in other specified circumstances (principal); R94.6 Abnormal results of thyroid function studies; I10 Essential (primary) hypertension; E55.9 Vitamin D deficiency, unspecified; K21.9 Gastro-esophageal reflux disease without esophagitis; F41.9 Anxiety disorder, unspecified
CPT/HCPCS: 36415; 80053; 80061; 82306; 82607; 82746; 84439; 84443; 85025

== ENCOUNTER 2023-01-06 13:59 | Outpatient (AMB) | payer OTHER, SELFPAY ==
[2023-01-06 13:59] VITALS: BP 150/90; PULSE 91; O2SAT 100; BMI 28.3
--- NOTE | 2023-01-06 13:59 | A.OFFPC_ITS ---
Vital Signs 01/06/23 13:59 01/06/23 14:22 Height 5 ft 2.5 in Weight 157 lb BMI 28.3 BP 150/90 H 146/90 H Blood Pressure Location Lt brachial Lt brachial Position Sitting Sitting Pulse 91 Pulse Source Pulse Oximeter Temp Source Skin Pulse Oximetry (%) 100 Oxygen Delivery Method Room Air Intake Visit Reasons: PE with labs Intake Note: Patient is here today for a physical. 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 Allergies bee venom protein (honey bee) Allergy (Intermediate, Verified 01/06/23 14:09) Anaphylaxis penicillin V Allergy (Unknown, Verified 01/06/23 14:09) almost dies when child afte r PCN while in hospital Penicillins [PENICILLINS] Allergy (Unknown, Verified 01/06/23 14:09) ANAPHYLAXIS Medication List - Last Reconciled 01/06/23 by JONES Ramos dextroamphetamine-amphetamine 20 mg 1 tab PO .afternoon dextroamphetamine-amphetamine 30 mg ER (Adderall XR) 30 mg PO DAILY omeprazole 20 mg PO DAILY oxcarbazepine (Trileptal) 300 mg PO BID Tobacco use date assessed: 01/06/23 Dental Screening Dental Screen Date: 01/06/23 Did you have a dental visit in the last 12 months?: No Did you have a dental problem in the last 6 months where you did not have access to dental care?: No Was dental information given to patient?: Patient has dentist HPI PE with labs HPI Details Patient is a 47-year-old female presents today for physical exam. Medical history significant for GERD-on omeprazole with relief, affective bipolar disorder-on Trileptal-followed by Psychiatry, ADHD - on Adderall- followed by Psychiatry, anxiety, nicotine dependence - smoking since - interested in smoking cessation-reports smoking couple cigarettes per day and vaping - reports that nicotine lower dose did not work for her. Patient has an upcoming appointment with [facility] for annual exam. Today we discussed patient's need for colon cancer screening and mammogram. Blood pressure elevated in the office today, patient denies shortness of breath or chest pain. She reports intermittent fatigue. Recent blood work results reviewed with the patient. Patient is due for tetanus vaccine. [facility] Medical History (Updated 01/06/23 @ 14:37 by JONES Ramos) ADHD Affective bipolar disorder Encounter to establish care GERD (gastroesophageal reflux disease) Low TSH level Surgical History History of tubal ligation Hx of appendectomy Hx of breast reduction, elective Family History Other Mental health disorder Substance use disorder Social History Housing: Apartment Alcohol intake: former Patient Tobacco Use Status: Current everyday Tobacco user Tobacco use type: Cigarette Cigarettes Per Day: 2 e-Cigarette/Vaping Use: Currently Using Second Hand Smoke Exposure: No Substance Use Type: Marijuana service: No Current occupational status: disabled Cognitive needs: No Hearing needs: No Vision needs: No Questionnaire Thrive Questionnaire Date Thrive assessed: 11/05/22 AUDIT C Alcohol Use Questionnaire (AUDIT-C) 1. How often do you have a drink containing alcohol?: Never 3. How often do you have six or more drinks on one occasion?: Never Total Score: 0 Score Reviewed/Action Taken: No VIKA-7 AMB Questionnaire VIKA-7 Date VIKA - 7 assessed: 11/05/22 Feeling nervous, anxious, or on edge: 2 = More than half the days Not being able to stop or control worryin = Not at all Worrying too much about different things: 0 = Not at all Trouble relaxin = Nearly every day Being so restless that it is hard to sit still: 0 = Not at all Becoming easily annoyed or irritable: 0 = Not at all Feeling afraid as if something awful might happen: 1 = Several days Total VIKA-7 score (0-4 normal; 5-9 mild; 10-14 moderate; 15-21 severe): 6 Source: Developed by Drs. Cory Hooper, Payton Stovall, Hunter Spivey and colleagues, with an educational frederick from [employer]. VIKA-7 Assessment Billing VIKA-7 Assessment Tool: VIKA-7 Assessment 31293 Review of Systems Const Denies body aches, Denies chills, Reports fatigue (Intermittent), Denies fever(s) and Denies headache(s) Eyes Denies change in vision ENT Denies dizziness, Denies otalgia, Denies headache(s), Denies nasal discharge, Denies sinus pain and Denies sore throat Card Denies chest pain, Denies edema, Denies lightheadedness and Denies dyspnea Resp Denies cough and Denies dyspnea GI Denies constipation, Denies diarrhea, Denies nausea and Denies vomiting Denies dysuria Musc Denies myalgias Skin/Breast Denies lesions, Denies rash and Denies unusual bruising Neuro Denies dizziness and Denies headache(s) Endo Reports fatigue (Intermittent) Physical exam (Primary Care) Vital Signs: Last Vital Signs Pulse 91 01/06/23 13:59 BP 146/90 H 01/06/23 14:22 Pulse Ox 100 01/06/23 13:59 Oxygen Delivery Method Room Air 01/06/23 13:59 BMI result Body Mass Index 28.3 Tobacco/Smoking Status: Tobacco use Status Tobacco use date assessed 01/06/23 01/06/23 14:04 Patient Tobacco Use Status Current everyday Tobacco 01/06/23 14:04 Tobacco use type Cigarette 01/06/23 14:04 e-Cigarette/Vaping Use Currently Using 01/06/23 14:04 Thrive Assessment: Date of Thrive Assessment Date Thrive assessed 11/05/22 01/06/23 14:04 Const General: cooperative and no acute distress Orientation/consciousness: patient oriented x3 HENMT Head: Yes normocephalic and Yes atraumatic Ears: TM's normal bilaterally Face and sinus: Yes sinuses nontender Mouth: oropharynx normal and moist mucous membranes Throat: Yes posterior oropharynx normal Eyes General: appearance normal, both eyes and all related structures Pupils: Equal, round and reactive pupils present EOM: EOMs intact bilaterally Neck Neck: Yes normal visual inspection, Yes full ROM and Yes no lymphadenopathy Thyroid: Thyroid normal Resp Effort & Inspection: normal respiratory effort and able to speak in complete sentences Auscultation: clear to auscultation bilaterally, no crackles, no rales, no rhonchi and no wheezes Cardio Rate: regular rate Rhythm: regular rhythm Heart sounds: S1 normal heart sound present, S2 normal heart sound present and no murmurs GI Palpation (GI): Soft to palpation, not firm, nontender, no guarding, not rigid and no hepatosplenomegaly Auscultation: normal bowel sounds General: No CVA tenderness Back/Spine/Pelvis Back: No CVA tenderness Skin General skin exam: no rashes or lesions noted Neuro General: patient oriented x3 Cranial nerves: Yes Equal, round and reactive pupils present Gait exam (Neuro): Normal gait present Extrem General: Yes full ROM and No edema Immunizations Boostrix Tdap Performing Provider: JONES Ramos Administered by: PHANI Welch on 01/06/23 14:33 Dose Route Admin Location Lot Number Expiration Date NDC Ter[employer] Developer 0.5 mL IM Left Deltoid [id number] 04/08/25 [id number] [employer] VIS Given Date VIS Provided VIS Publication Date 01/06/23 Single Vaccine 21 Eligibility Eligibility Date Funding Source Not [facility] Eligible 01/06/23 Private Assessment and Plan Assessment & Plan (1) Nicotine dependence: Code(s): F17.200 - Nicotine dependence, unspecified, uncomplicated Plan: Nicotine patch sent - higher dose Encouraged smoking cessation (2) ADHD: Code(s): F90.9 - Attention-deficit hyperactivity disorder, unspecified type Plan: Continue to follow-up with Psychiatry Dr. Alanis who prescribes Adderall. Patient is on Adderall 30 mg in the morning and 20 mg in the afternoon (3) Affective bipolar disorder: Code(s): F31.9 - Bipolar disorder, unspecified Plan: Continue to follow-up with Psychiatry prescribes Trileptal Patient reports that she speaks weekly with anxiety team and psychiatry office working on obtaining a therapist (4) GERD (gastroesophageal reflux disease): Code(s): K21.9 - Gastro-esophageal reflux disease without esophagitis Plan: Omeprazole 20 mg daily - patient reports when she misses omeprazole dose she starts vomiting, will also refer to GI for an evaluation Avoid GERD trigger foods Do not lay down 2-3 hours after evening meal (5) Hypertension: Code(s): I10 - Essential (primary) hypertension Plan: Blood pressure elevated for the past couple times Goal BP equal or less than 140/90 Start lisinopril 5 mg daily-educated about possible adverse reactions and when to notify provider Encouraged low-sodium diet and weight loss Follow-up with nurse in 2 weeks for BP recheck Patient was encouraged to monitor blood pressures at home (6) Low vitamin D level: Code(s): R79.89 - Other specified abnormal findings of blood chemistry Plan: Vitamin-D 23.8 12/2022 Sent vitamin-D supplement (7) Adult general medical exam: Code(s): Z00.00 - Encounter for general adult medical examination without abnormal findings (8) Screening for breast cancer: Code(s): Z12.39 - Encounter for other screening for malignant neoplasm of breast (9) Screening for colon cancer: Code(s): Z12.11 - Encounter for screening for malignant neoplasm of colon (10) High thyroid stimulating hormone (TSH) level: Code(s): R79.89 - Other specified abnormal findings of blood chemistry Plan: TSH 6.79, free T4 0.80 12/2022 Recheck in 4 weeks Plan Follow-up in 3 months or sooner as needed Patient reports that she will be having dental work and she will call for preop Orders: Orders MM tomosynthesis screening BI Today Z12.31 - Encounter for screening mammogram for malignant neoplasm of breast, Z12.39 - Encounter for other screening for malignant neoplasm of breast TSH reflex Free T4 4 Weeks R79.89 - Other specified abnormal findings of blood chemistry Vitamin D 25-OH Total 3 Months R79.89 - Other specified abnormal findings of blood chemistry TDaP Immunization Today Z00.00 - Encounter for general adult medical examination without abnormal findings, Z23 - Encounter for immunization Referrals Gastroenterology Referral K21.9 - Gastro-esophageal reflux disease without esophagitis, Z12.11 - Encounter for screening for malignant neoplasm of colon Medications: New Boostrix Tdap (diphth,pertus(acell),tetanus) 0.5 mL IM ONCE 0.5 mL 0RF NS Z00.00 - Encounter for general adult medical examination without abnormal findings, Z23 - Encounter for immunization cholecalciferol (vitamin D3) 25 mcg PO DAILY 90 tabs 0RF R79.89 - Other specified abnormal findings of blood chemistry nicotine 1 patch transdermal DAILY 28 ea 0RF F17.200 - Nicotine dependence, unspecified, uncomplicated omeprazole 20 mg PO DAILY 90 caps 1RF K21.9 - Gastro-esophageal reflux disease without esophagitis lisinopril 5 mg PO DAILY 30 tabs 2RF I10 - Essential (primary) hypertension blood pressure monitor As directed 1 ea 0RF I10 - Essential (primary) hypertension Coding Level of Care Code Est Pt Prev Care 40-64y(44000) Diagnoses Nicotine dependence F17.200 ADHD F90.9 Affective bipolar disorder F31.9 GERD (gastroesophageal reflux disease) K21.9 Hypertension I10 Low vitamin D level R79.89 Adult general medical exam Z00.00 Screening for breast cancer Z12.39 Screening for colon cancer Z12.11 High thyroid stimulating hormone (TSH) level R79.89 Additional Codes VIKA-7 Assessment Billing - IVKA-7 Assessment Tool: VIKA-7 Assessment 32641 ([id number])
[2023-01-06 14:22] VITALS: BP 146/90
== END 2023-01-06 14:39 | disposition home or self-care (01) ==
PROVIDERS: Visit Provider Nurse Practitioner Family
DX: Z00.00 Encounter for general adult medical examination without abnormal findings (principal); F90.9 Attention-deficit hyperactivity disorder, unspecified type; F17.200 Nicotine dependence, unspecified, uncomplicated; Z23 Encounter for immunization; F31.9 Bipolar disorder, unspecified; K21.9 Gastro-esophageal reflux disease without esophagitis; I10 Essential (primary) hypertension; R79.89 Other specified abnormal findings of blood chemistry; Z12.39 Encounter for other screening for malignant neoplasm of breast; Z12.11 Encounter for screening for malignant neoplasm of colon
CPT/HCPCS: 90471; 90715; 99396

== ENCOUNTER 2023-04-14 10:27 | Outpatient (AMB) | payer OTHER, SELFPAY ==
[2023-04-14 10:47] VITALS: BP 130/82; PULSE 86; O2SAT 93; BMI 27.0
--- NOTE | 2023-04-14 10:47 | A.OFFPC_ITS ---
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: No Allergies bee venom protein (honey bee) Allergy (Intermediate, Verified 04/14/23 11:01) Anaphylaxis penicillin V Allergy (Unknown, Verified 04/14/23 11:01) almost dies when child afte r PCN while in hospital Penicillins [PENICILLINS] Allergy (Unknown, Verified 04/14/23 11:01) ANAPHYLAXIS Medication List - Last Reconciled 04/14/23 by JONES Ramos blood pressure monitor As directed cholecalciferol (vitamin D3) 25 mcg PO DAILY dextroamphetamine-amphetamine 20 mg 1 tab PO .afternoon dextroamphetamine-amphetamine 30 mg ER (Adderall XR) 30 mg PO DAILY lisinopril 5 mg PO DAILY omeprazole 20 mg PO DAILY oxcarbazepine (Trileptal) 300 mg PO BID Tobacco use date assessed: 04/14/23 Dental Screening Dental Screen Date: 04/14/23 Did you have a dental visit in the last 12 months?: No Did you have a dental problem in the last 6 months where you did not have access to dental care?: Yes Was dental information given to patient?: Patient has dentist HPI 3 month f/u HPI Details Patient is a 48-year-old female presents today to follow-up on her chronic conditions. Medical history significant for GERD-on omeprazole with relief, affective bipolar disorder-on Trileptal-followed by Psychiatry, ADHD - on Adderall-followed by Psychiatry, anxiety, nicotine dependence - smoking since -interested in smoking cessation-reports smoking couple cigarettes per day (1 pack lasts 3 days) and vaping - reports that nicotine patch would not stay on her - willing to try nicotine gum. She reports intermittent fatigue. Patient was encouraged to complete her blood work. Denies shortness of breath or chest pain. [facility] Medical History Low TSH level Encounter to establish care ADHD Affective bipolar disorder GERD (gastroesophageal reflux disease) Surgical History History of tubal ligation Hx of breast reduction, elective Hx of appendectomy Family History Other Mental health disorder Substance use disorder Social History Housing: Apartment Alcohol intake: former Patient Tobacco Use Status: Current everyday Tobacco user Tobacco use type: Cigarette Cigarettes Per Day: 2 e-Cigarette/Vaping Use: Currently Using Second Hand Smoke Exposure: No Substance Use Type: Marijuana service: No Current occupational status: disabled Cognitive needs: No Hearing needs: No Vision needs: No Questionnaire PHQ-9 Over the last 2 weeks, how often have you been bothered by any of the following problems? 1. Little interest or pleasure in doing things: not at all 2. Feeling down, depressed, or hopeless: not at all 3. Trouble falling or staying asleep, or sleeping too much: not at all 4. Feeling tired or having little energy: not at all 5. Poor appetite or overeating: not at all 6. Feeling bad about yourself - or that you are a failure or have let yourself or your family down: not at all 7. Trouble concentrating on things, such as reading the newspaper or watching television: not at all 8. Moving or speaking so slowly that other people could have noticed. Or the opposite - being so fidgety or restless that you have been moving around a lot more than usual: not at all 9. Thoughts that you would be better off or of hurting yourself in some way: not at all Total score: 0 Depression Screening Interpretation: Negative Depression Screening Done: Yes [id number] - PHQ-9 Billing: Yes Source: Developed by Drs. Cory Hooper, Payton Stovall, Hunter Spivey and colleagues, with an educational frederick from [employer]. Thrive Questionnaire Date Thrive assessed: 11/05/22 AUDIT C Alcohol Use Questionnaire (AUDIT-C) 1. How often do you have a drink containing alcohol?: Never 3. How often do you have six or more drinks on one occasion?: Never Total Score: 0 Score Reviewed/Action Taken: No VIKA-7 AMB Questionnaire VIKA-7 Date VIKA - 7 assessed: 11/05/22 Source: Developed by Drs. Cory Hooper, Payton Stovall, Hunter Spivey and colleagues, with an educational frederick from [employer]. Review of Systems Const Denies body aches, Denies chills, Reports fatigue (Intermittent), Denies fever(s) and Denies headache(s) Eyes Denies change in vision ENT Denies dizziness, Denies otalgia, Denies headache(s), Denies nasal discharge, Denies sinus pain and Denies sore throat Card Denies chest pain, Denies edema, Denies lightheadedness and Denies dyspnea Resp Denies cough and Denies dyspnea GI Denies constipation, Denies diarrhea, Denies nausea and Denies vomiting Denies dysuria Musc Denies myalgias Skin/Breast Denies lesions, Denies rash and Denies unusual bruising Neuro Denies dizziness and Denies headache(s) Endo Reports fatigue (Intermittent) Physical exam (Primary Care) Vital Signs: Last Vital Signs Pulse 86 04/14/23 10:47 BP 130/82 04/14/23 10:47 Pulse Ox 93 04/14/23 10:47 Oxygen Delivery Method Room Air 04/14/23 10:47 BMI result Body Mass Index 27.0 Tobacco/Smoking Status: Tobacco use Status Tobacco use date assessed 04/14/23 04/14/23 10:51 Patient Tobacco Use Status Current everyday Tobacco 04/14/23 10:51 Tobacco use type Cigarette 04/14/23 10:51 e-Cigarette/Vaping Use Currently Using 04/14/23 10:51 PHQ-9: PHQ-9 Score PHQ-9: Total score 0 04/14/23 10:51 Depression Screening Interpretation: Negative Thrive Assessment: Date of Thrive Assessment Date Thrive assessed 11/05/22 04/14/23 10:51 Const General: cooperative and no acute distress Orientation/consciousness: patient oriented x3 HENMT Head: Yes normocephalic and Yes atraumatic Face and sinus: Yes sinuses nontender Mouth: oropharynx normal and moist mucous membranes Throat: Yes posterior oropharynx normal Eyes General: appearance normal, both eyes and all related structures Neck Neck: Yes normal visual inspection, Yes full ROM and Yes no lymphadenopathy Thyroid: Thyroid normal Resp Effort & Inspection: normal respiratory effort and able to speak in complete sentences Auscultation: clear to auscultation bilaterally, no crackles, no rales, no rhonchi and no wheezes Cardio Rate: regular rate Rhythm: regular rhythm Heart sounds: S1 normal heart sound present, S2 normal heart sound present and no murmurs GI Auscultation: normal bowel sounds Skin General skin exam: no rashes or lesions noted Neuro General: patient oriented x3 Gait exam (Neuro): Normal gait present Extrem General: Yes full ROM and No edema Assessment and Plan Assessment & Plan (1) Nicotine dependence: Code(s): F17.200 - Nicotine dependence, unspecified, uncomplicated Plan: Nicotine gum sent Encouraged smoking cessation (2) ADHD: Code(s): F90.9 - Attention-deficit hyperactivity disorder, unspecified type Plan: Continue to follow-up with Psychiatry Dr. Alanis who prescribes Adderall. Patient is on Adderall 30 mg in the morning and 20 mg in the afternoon (3) Affective bipolar disorder: Code(s): F31.9 - Bipolar disorder, unspecified Plan: Continue to follow-up with Psychiatry prescribes Trileptal (4) GERD (gastroesophageal reflux disease): Code(s): K21.9 - Gastro-esophageal reflux disease without esophagitis Plan: Omeprazole 20 mg daily - patient reports when she misses omeprazole dose she starts vomiting Avoid GERD trigger foods Do not lay down 2-3 hours after evening meal (5) Hypertension: Code(s): I10 - Essential (primary) hypertension Plan: Goal BP equal or less than 140/90 Continue lisinopril 5 mg daily Continue low-sodium diet and weight loss (6) Low vitamin D level: Code(s): R79.89 - Other specified abnormal findings of blood chemistry Plan: Vitamin-D 23.8 12/2022 Continue vitamin-D supplement (7) High thyroid stimulating hormone (TSH) level: Code(s): R79.89 - Other specified abnormal findings of blood chemistry Plan: TSH 6.79, free T4 0.80 12/2022 Patient was encouraged to complete her blood work Plan Follow-up in 3 months or sooner as needed Medications: New nicotine (polacrilex) 2 mg buccal Q2H PRN 50 ea 1RF nicotine cravings F17.200 - Nicotine dependence, unspecified, uncomplicated Coding Level of Care Code Est Pt Level 4 (20337) Diagnoses Nicotine dependence F17.200 ADHD F90.9 Affective bipolar disorder F31.9 GERD (gastroesophageal reflux disease) K21.9 Hypertension I10 Low vitamin D level R79.89 High thyroid stimulating hormone (TSH) level R79.89
== END 2023-04-14 11:16 | disposition home or self-care (01) ==
PROVIDERS: PCP Nurse Practitioner Family; Visit Provider Nurse Practitioner Family
DX: F17.200 Nicotine dependence, unspecified, uncomplicated (principal); F90.9 Attention-deficit hyperactivity disorder, unspecified type; F31.9 Bipolar disorder, unspecified; K21.9 Gastro-esophageal reflux disease without esophagitis; I10 Essential (primary) hypertension; R79.89 Other specified abnormal findings of blood chemistry
CPT/HCPCS: 99214

== ENCOUNTER 2023-04-14 11:22 | Outpatient (REF) | payer OTHER, SELFPAY ==
[2023-04-14 13:31] LABS: Vitamin D 25-OH Total 33.5 ng/mL (>30)
[2023-04-14 14:12] LABS: Free T4 (Free Thyroxine) 0.65 ng/dL (0.71-1.85)
== END 2023-04-14 11:23 | disposition home or self-care (01) ==
LOC: HO.LAB 11:22
PROVIDERS: PCP Nurse Practitioner Family; Visit Provider Nurse Practitioner Family
DX: R94.6 Abnormal results of thyroid function studies (principal); E55.9 Vitamin D deficiency, unspecified
CPT/HCPCS: 36415; 82306; 84439; 84443

== ENCOUNTER 2023-04-16 10:53 | Outpatient (REF) | payer OTHER, SELFPAY ==
[2023-04-16 16:54] LABS: CT PCR NOT DETECTED (Not Detect.); NG PCR NOT DETECTED (Not Detect.)
[2023-04-17 11:13] LABS: BV Int Neg Control Negative (Negative); BV Int Pos Control Positive (Positive)
[2023-04-21 06:43] LABS: HPV mRNA E6/E7 rflx Not Detected (Not Detected)
== END 2023-04-16 10:54 | disposition home or self-care (01) ==
LOC: HO.LNP 10:53
PROVIDERS: Visit Provider Advanced Practice Midwife
DX: Z01.419 Encounter for gynecological examination (general) (routine) without abnormal findings (principal); N95.1 Menopausal and female climacteric states; N92.4 Excessive bleeding in the premenopausal period; R79.89 Other specified abnormal findings of blood chemistry; F17.200 Nicotine dependence, unspecified, uncomplicated; Z97.5 Presence of (intrauterine) contraceptive device; Z87.42 Personal history of other diseases of the female genital tract; Z79.899 Other long term (current) drug therapy; Z20.2 Contact with and (suspected) exposure to infections with a predominantly sexual mode of transmission
CPT/HCPCS: 0353U; 87480; 87510; 87624; 87660; 88142

== ENCOUNTER 2023-04-16 10:53 | Outpatient (AMB) | payer OTHER, SELFPAY ==
--- NOTE | 2023-04-16 11:03 | MHC.OFFVIS ---
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 Required: No Information Interpreted: non-clinical & clinical Manager Call: Manager Call Present (Aidyn) Allergies bee venom protein (honey bee) Allergy (Intermediate, Verified 04/16/23 11:08) Anaphylaxis penicillin V Allergy (Unknown, Verified 04/16/23 11:08) almost dies when child afte r PCN while in hospital Penicillins [PENICILLINS] Allergy (Unknown, Verified 04/16/23 11:08) ANAPHYLAXIS Medication List - Last Reconciled 04/16/23 by Brandy Guillen CNM blood pressure monitor As directed cholecalciferol (vitamin D3) 25 mcg PO DAILY clonazepam 0.5 mg PO DAILY PRN dextroamphetamine-amphetamine 20 mg 1 tab PO .afternoon dextroamphetamine-amphetamine 30 mg ER (Adderall XR) 30 mg PO DAILY lisinopril 5 mg PO DAILY nicotine (polacrilex) 2 mg buccal Q2H PRN omeprazole 20 mg PO DAILY oxcarbazepine (Trileptal) 300 mg PO BID Is last menstrual period known: No (no menses mirena) Post menopausal: No HPI New patient Annual HPI Details 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 She said she was here many many years ago at for she said it was 5 years and then she thought it might be 5/10 years. She has a history of endometriosis a history of breast reduction surgery she does not think she ever had an abnormal Pap smear. She has 2 children delivered vaginally in [facility] and she did have large tear with her delivery all the way to her rectum. She is not sexually active she has been getting hot flashes she thinks she had a Mirena put in about 5 years ago and it is probably due to be removed she says she had a put in for control of her heavy periods because she did not want hysterectomy but she had already had her tubes tied so she was not using it for control. She thinks it is time to have it cut taken out but she does not want to have periods again . She is on meds for mental health that she sees providers at [facility] for.. She just recently had some blood work repeated for her thyroid with her primary care provider and does not know the results of those yet. She says she has a little bit of high blood pressure and she was started on a medication and has been checking it. She runs after her grand niece who is 3 years old all day. [facility] Medical History Anxiety Low TSH level Encounter to establish care ADHD Affective bipolar disorder GERD (gastroesophageal reflux disease) Surgical History History of tubal ligation Hx of breast reduction, elective Hx of appendectomy Family History (Updated 04/16/23 @ 11:11 by PHANI Hsu) Maternal Grandmother Colon cancer Other Mental health disorder Substance use disorder Social History (Updated 04/16/23 @ 11:11 by PHANI Hsu) Housing: Apartment Alcohol intake: former Patient Tobacco Use Status: Current everyday Tobacco user Tobacco use type: Cigarette Cigarettes Per Day: 6 e-Cigarette/Vaping Use: Currently Using Second Hand Smoke Exposure: No Substance Use Type: Marijuana service: No Current occupational status: disabled Cognitive needs: No Hearing needs: No Vision needs: No Female Reproductive History Menstrual Age of Menarche: 8 Duration of menses: other control method: progestin IUCD Total pregnancies: 2 Full term: 2 Number of Living Children: 2 Date of last pap smear: 02/13/17 (unsatisfactory) Physical Exam Vital Signs: Last Vital Signs BP 124/86 04/16/23 11:04 BMI result Body Mass Index 27.4 Const General: healthy appearing, comfortable, no acute distress, well developed and alert Nutritional Appearance: average body habitus Orientation/consciousness: patient oriented x3 Limitations: no limitations HEENT Head: Yes normocephalic Neck Other: Thyroid does feel enlarged. Neck: Yes normal visual inspection Chest Other: Scars from breast reduction surgery Chest palpation & inspection: normal inspection of the chest Breast/axilla inspection: normal inspection of the breasts and normal inspection of the axillae Breast/axilla palpation: normal palpation of the breasts and normal palpation of the axillae Resp Effort & Inspection: normal respiratory effort GI Inspection: Yes normal to inspection, No Abdominal wall edema and No distended Palpation (GI): Soft to palpation and nontender Other: Evidence of either extensive episiotomy or 4th degree tear. Vagina pink moist slightly malodorous discharge. Cervix multiparous initially unable to see string but after Pap Mirena string did become visible. Uterus is small anteverted nontender mobile. Adnexa nontender good muscle tone. General: Yes bladder normal to palpation External Female Exam: normal external appearance and normal appearance of the urethra Speculum Exam - Vagina: normal appearance of the vagina, normal palpation and normal vaginal discharge Speculum Exam - Cervix: normal appearance of the cervix, normal palpation and nontender Bimanual exam- vagina & uterus: normal bimanual exam, normal palpation, uterine size normal, bladder normal to palpation, consistency normal, normal palpation, uterine mobility normal, uterine shape normal, No Cervical tenderness present, non-tender and no cervical motion tenderness Bimanual Exam- Adnexa, other: normal adnexae, no masses, normal and No adnexal tenderness Neuro General: patient oriented x3 Results Reviewed Results Reviewed: Name: Casie Cardona Age/Sex: 48/F : 1975 Unit#: [id number] Attend Dr: Carol Kwok Re04/14/23 Status: DEP REF Location: .LAB Disch: SPEC : [id number] DEREK: 04/14/23 STATUS: COMP REQ : [id number] RECD: 04/14/[address]: Carol Kwok COMP: 04/14/231 ENTERED: 04/14/[address]: ORDERED: Vitamin D 25-OH, Free T4, TSH Rflx Test Result Flag Reference Site Vit D 25-OH Tot 33.5 >30 ng/mL Health Based Reference Values* < 20 ng/mL Deficient 20-30 ng/mL Insufficient > 30 ng/mL Sufficient *Lolita LAZARO. N Engl J Med. 2007;357:266-280 Care must be taken in interpreting Vitamin D results from different laboratories and methodologies. Published data demonstrated that results from patients undergoing hemodialysis may show a negative bias when tested with various automated 25-OH vitamin D assays when compared to LC-MS/MS. When testing samples from patients whose predominant form of Vitamin D is Vitamin D2, such as patients receiving Vitamin D2 supplementation, results that are subtherapeutic should be confirmed with another method such as LC-MS/MS. Free T4 0.65 L 0.71-1.85 ng/dL TSH 5.00 H 0.32-4.0 uIU/mL Assessment & Plan Assessment & Plan (1) Screening for breast cancer: Code(s): Z12.39 - Encounter for other screening for malignant neoplasm of breast (2) Cervical cancer screening: Code(s): Z12.4 - Encounter for screening for malignant neoplasm of cervix (3) Presence of 52 mg levonorgestrel-releasing intrauterine device (IUD): Comment: Per [facility], Mirena IUD was inserted by Dr. Daniels on 03/26/2017. Code(s): Z97.5 - Presence of (intrauterine) contraceptive device (4) Hx of endometriosis: Code(s): Z87.42 - Personal history of other diseases of the female genital tract (5) Perimenopausal symptoms: Code(s): N95.1 - Menopausal and female climacteric states (6) Presence of IUD: Code(s): Z97.5 - Presence of (intrauterine) contraceptive device (7) Menorrhagia, premenopausal: Comment: Patient states that the Mirena was placed to deal with this she has not bled since it was put in. may be due for replacement Code(s): N92.4 - Excessive bleeding in the premenopausal period (8) High thyroid stimulating hormone (TSH) level: Code(s): R79.89 - Other specified abnormal findings of blood chemistry (9) Nicotine dependence: Code(s): F17.200 - Nicotine dependence, unspecified, uncomplicated Plan -----Discussed in this visit the following: healthy balanced diet, regular and consistent exercise, getting recommended health screens, doing the best she can for her particular health concerns, kegel exercises, pap smear screening and followup recommendations, mammography screening and SBE, normal changes in cycles in her life stage--- . Patient will be scheduling her mammogram for her PCC. I have ordered an FSH to see if she is indeed in the kenisha menopausal or menopausal range at this time. Also an ultrasound because she expressed concern about where the IUD was though at the end of the exam I was able to see the strings so was more reassured. We will have a visit after to review the ultrasound and to discuss planning of either re placement of the Mirena IUD if necessary or removing it. The patient also voiced that if it is still working for her she might want to just leave it alone. Discussed that while the recommendations are that it is removed and replaced when it is being used for control of menses, she may choose otherwise. [facility] was searched after the patient left documentation of the insertion procedure was noted on 03/26/[address] Daniels. It was being used for menorrhagia with regular cycles. By this calculation it has been in 6 years. Note patient voiced anxiety about being here for this visit and was visibly anxious. I did not address smoking today. It has been addressed at the last 3 visits with her primary. Orders: Orders Bacterial Vaginosis Panel Today Z01.419 - Encounter for gynecological examination (general) (routine) without abnormal findings US pelvic and transvaginal Today Z12.39 - Encounter for other screening for malignant neoplasm of breast, Z12.4 - Encounter for screening for malignant neoplasm of cervix, Z87.42 - Personal history of other diseases of the female genital tract, Z97.5 - Presence of (intrauterine) contraceptive device Follicle Stimulating Hormone Today N95.1 - Menopausal and female climacteric states, Z87.42 - Personal history of other diseases of the female genital tract, Z97.5 - Presence of (intrauterine) contraceptive device Pap Smear Today Z01.419 - Encounter for gynecological examination (general) (routine) without abnormal findings CT NG by PCR Today Z01.419 - Encounter for gynecological examination (general) (routine) without abnormal findings Coding Level of Care Code New Pt Prev Care 40-64y(53509) Diagnoses Screening for breast cancer Z12.39 Cervical cancer screening Z12.4 Presence of 52 mg levonorgestrel-releasing intrauterine device (IUD) Z97.5 Hx of endometriosis Z87.42 Perimenopausal symptoms N95.1 Presence of IUD Z97.5 Menorrhagia, premenopausal N92.4 High thyroid stimulating hormone (TSH) level R79.89 Nicotine dependence F17.200
[2023-04-16 11:04] VITALS: BP 124/86; BMI 27.4
== END 2023-04-16 11:52 | disposition home or self-care (01) ==
PROVIDERS: Visit Provider Advanced Practice Midwife
DX: Z01.419 Encounter for gynecological examination (general) (routine) without abnormal findings (principal); N95.1 Menopausal and female climacteric states; R79.89 Other specified abnormal findings of blood chemistry; F17.200 Nicotine dependence, unspecified, uncomplicated; Z87.42 Personal history of other diseases of the female genital tract; Z97.5 Presence of (intrauterine) contraceptive device
CPT/HCPCS: 99386

== ENCOUNTER 2023-04-21 12:21 | Outpatient (REF) | payer OTHER, SELFPAY ==
[2023-04-23 17:39] LABS: Follicle Stimulating Hormone 69.5 mIU/mL
== END 2023-04-21 12:22 | disposition home or self-care (01) ==
LOC: HO.LAB 12:21
PROVIDERS: PCP Nurse Practitioner Family; Visit Provider Advanced Practice Midwife
DX: N95.1 Menopausal and female climacteric states (principal); Z97.5 Presence of (intrauterine) contraceptive device; Z87.42 Personal history of other diseases of the female genital tract
CPT/HCPCS: 36415; 83001

== ENCOUNTER 2023-05-01 13:44 | Outpatient (REF) | payer OTHER, SELFPAY ==
--- NOTE | ~2023-05-01 | US_ITS ---
EXAMINATION: US PELVIS CLINICAL INFORMATION: Menorrhagia. Last menstrual period one year ago with IUD. COMPARISON: None available. TECHNIQUE: Ultrasound of the pelvis is performed using both transabdominal and transvaginal transducers along with Doppler. Transvaginal imaging is performed due to inadequate visualization transabdominally. Limited visualization due to bowel gas. FINDINGS: Uterus is anteverted, heterogeneous and measures 8.7 x 3.8 x 5.7 cm. No discrete fibroids are identified. IUD in place within the endometrial cavity. Double wall endometrial thickness of 0.6 cm, although visualization of endometrium is substantially limited due to uterine heterogeneity and shadowing from IUD. Left ovary not visualized. Right ovary measures 2.9 x 1.4 x 1.7 cm, volume 4.8 mL and is unremarkable. Limited visualization of the right ovary due to bowel gas. US/US pelvic and transvaginal IMPRESSION: 1. IUD in place within the endometrial cavity. Double wall endometrial thickness of 0.6 cm, although visualization of endometrium is substantially limited due to uterine heterogeneity and shadowing from IUD. Correlation with menstrual history and possible gynecologic evaluation recommended to determine further management. 2. Left ovary not visualized. Unremarkable right ovary. 3. Heterogeneous uterus. No discrete fibroids identified.
== END 2023-05-01 13:45 | disposition home or self-care (01) ==
LOC: HO.US 13:44
PROVIDERS: PCP Nurse Practitioner Family; Visit Provider Advanced Practice Midwife
DX: Z12.39 Encounter for other screening for malignant neoplasm of breast (principal); Z12.4 Encounter for screening for malignant neoplasm of cervix; Z87.42 Personal history of other diseases of the female genital tract; Z97.5 Presence of (intrauterine) contraceptive device
CPT/HCPCS: 76830; 76856

== ENCOUNTER 2023-06-09 10:47 | Outpatient (AMB) | payer OTHER, SELFPAY ==
[2023-06-09 11:11] VITALS: BMI 25.7
--- NOTE | 2023-06-09 11:11 | MHC.OFFVIS ---
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 Allergies bee venom protein (honey bee) Allergy (Intermediate, Verified 06/09/23 11:13) Anaphylaxis penicillin V Allergy (Unknown, Verified 06/09/23 11:13) almost dies when child afte r PCN while in hospital Penicillins [PENICILLINS] Allergy (Unknown, Verified 06/09/23 11:13) ANAPHYLAXIS Medication List - Last Reconciled 06/09/23 by Brandy Guillen CNM blood pressure monitor As directed cholecalciferol (vitamin D3) 25 mcg PO DAILY clonazepam 0.5 mg PO DAILY PRN dextroamphetamine-amphetamine 20 mg 1 tab PO .afternoon dextroamphetamine-amphetamine 30 mg ER (Adderall XR) 30 mg PO DAILY levothyroxine 25 mcg PO DAILY lisinopril 5 mg PO DAILY nicotine (polacrilex) 2 mg buccal Q2H PRN omeprazole 20 mg PO DAILY oxcarbazepine (Trileptal) 300 mg PO BID Is last menstrual period known: No HPI US follow up/possibly Mirena Exchange HPI Details Patient is here to review her ultrasound and talk about what to do about her Mirena and see if she is in the menopausal range. She has not had a period in about a year. She has had the Mirena for about 5 years she likes not having periods anymore. She is on medication for her ADHD and for her thyroid and she says she is on although does she has a primary care appointment coming up next month. She says she smokes marijuana in the evening just to sleep and it helped works for her and she has figured out of good balance though she is still tired a lot she watches her 3-year-old for her daughter but is glad her daughter is learning to be responsible now too. [facility] Medical History (Updated 04/24/23 @ 12:46 by Brandy Guillen CNM) High thyroid stimulating hormone (TSH) level Anxiety Low TSH level Encounter to establish care ADHD Affective bipolar disorder GERD (gastroesophageal reflux disease) Surgical History History of tubal ligation Hx of breast reduction, elective Hx of appendectomy Family History (Updated 04/16/23 @ 11:11 by PHANI Hsu) Maternal Grandmother Colon cancer Other Mental health disorder Substance use disorder Social History (Updated 04/16/23 @ 11:11 by PHANI Hsu) Housing: Apartment Alcohol intake: former Patient Tobacco Use Status: Current everyday Tobacco user Tobacco use type: Cigarette Cigarettes Per Day: 6 e-Cigarette/Vaping Use: Currently Using Second Hand Smoke Exposure: No Substance Use Type: Marijuana service: No Current occupational status: disabled Cognitive needs: No Hearing needs: No Vision needs: No Female Reproductive History Menstrual Age of Menarche: 8 Physical Exam Vital Signs: BMI result Body Mass Index 25.7 Results Reviewed Results Reviewed: Patient: Casie Cardona MR#: [id number] : 1975 Acct:[id number] Age/Sex: 48 / F ADM Date: 05/01/23 Loc: HO.US Attending Dr: Brandy Guillen CNM Ordering Physician: Brandy Guillen CNM Date of Service: 05/01/23 Procedure(s): US pelvic and transvaginal Accession Number(s): [id number] cc: Brandy Guillen CNM; Carol Kwok~ EXAMINATION: US PELVIS CLINICAL INFORMATION: Menorrhagia. Last menstrual period one year ago with IUD. COMPARISON: None available. TECHNIQUE: Ultrasound of the pelvis is performed using both transabdominal and transvaginal transducers along with Doppler. Transvaginal imaging is performed due to inadequate visualization transabdominally. Limited visualization due to bowel gas. FINDINGS: Uterus is anteverted, heterogeneous and measures 8.7 x 3.8 x 5.7 cm. No discrete fibroids are identified. IUD in place within the endometrial cavity. Double wall endometrial thickness of 0.6 cm, although visualization of endometrium is substantially limited due to uterine heterogeneity and shadowing from IUD. Left ovary not visualized. Right ovary measures 2.9 x 1.4 x 1.7 cm, volume 4.8 mL and is unremarkable. Limited visualization of the right ovary due to bowel gas. US/US pelvic and transvaginal IMPRESSION: 1. IUD in place within the endometrial cavity. Double wall endometrial thickness of 0.6 cm, although visualization of endometrium is substantially limited due to uterine heterogeneity and shadowing from IUD. Correlation with menstrual history and possible gynecologic evaluation recommended to determine further management. 2. Left ovary not visualized. Unremarkable right ovary. 3. Heterogeneous uterus. No discrete fibroids identified. 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 Negative for intraepithelial lesion or malignancy. HPV mRNA E6/E7: NOT DETECTED This assay detects E6/E7 viral messenger RNA (mRNA) from 14 high-risk HPV types (16, 18, 31, 33, 35, 39, 45, 51, 52, 56, 58, 59, 66, 68) HPV testing performed by [facility], [place], [place]. See reference laboratory pion of the EMR for entire report. Clinical Information LMP: Mirena IUD Previous PAP test: Unknown date/findings Material Received ThinPrep-Cervical Electronically Signed By: WATSON Wong ([facility]) 04/24/23 1106 The Pap Test is a screening procedure with the inherent possibility of both false negative and false positive results. Results should be interpreted in the context of historic and current clinical findings. Reliability of the Pap Test is enhanced by performing the test on a regular repetitive basis. Patient: Casie Cardona Age/Sex: 48/F MR#: [id number] Page 1 of 1 Re04/21/23 Status: DEP REF Location: .LAB Disch: SPEC : [id number] DEREK: 04/21/23 STATUS: COMP REQ : [id number] RECD: 04/21/[address]: Brandy Guillen CNM COMP: 04/23/23 ENTERED: 04/21/[address]: Carol Kwok ORDERED: FSH Test Result Flag Reference Site FSH 69.5 mIU/mL QU Reference Range Follicular Phase 2.5-10.2 Mid-cycle Peak 3.1-17.7 Luteal Phase 1.5- 9.1 Postmenopausal 23.0-116.3 THIS TEST WAS PERFORMED AT: [facility] [address] [address] MINOO KIMBLE MD Name: Casie Cardona Age/Sex: 48/F : 1975 Unit#: [id number] Attend Dr: Carol Kwok Re04/14/23 Status: DEP REF Location: .LAB Disch: SPEC : [id number] DEREK: 04/14/23 STATUS: COMP REQ : [id number] RECD: 04/14/[address]: Carol Kwok COMP: 04/14/23 ENTERED: 04/14/[address]: ORDERED: Vitamin D 25-OH, Free T4, TSH Rflx Test Result Flag Reference Site Vit D 25-OH Tot 33.5 >30 ng/mL Health Based Reference Values* < 20 ng/mL Deficient 20-30 ng/mL Insufficient > 30 ng/mL Sufficient *Lolita LAZARO. N Engl J Med. 2007;357:266-280 Care must be taken in interpreting Vitamin D results from different laboratories and methodologies. Published data demonstrated that results from patients undergoing hemodialysis may show a negative bias when tested with various automated 25-OH vitamin D assays when compared to LC-MS/MS. When testing samples from patients whose predominant form of Vitamin D is Vitamin D2, such as patients receiving Vitamin D2 supplementation, results that are subtherapeutic should be confirmed with another method such as LC-MS/MS. Free T4 0.65 L 0.71-1.85 ng/dL TSH 5.00 H 0.32-4.0 uIU/mL Assessment & Plan Assessment & Plan (1) Menorrhagia, premenopausal: Comment: Patient states that the Mirena was placed to deal with this she has not bled since it was put in. may be due for replacement Code(s): N92.4 - Excessive bleeding in the premenopausal period (2) Hypothyroidism: Code(s): E03.9 - Hypothyroidism, unspecified (3) Perimenopausal symptoms: Code(s): N95.1 - Menopausal and female climacteric states (4) Presence of 52 mg levonorgestrel-releasing intrauterine device (IUD): Comment: Per [facility], Mirena IUD was inserted by Dr. Daniels on 03/26/2017. Code(s): Z97.5 - Presence of (intrauterine) contraceptive device (5) Hx of endometriosis: Code(s): Z87.42 - Personal history of other diseases of the female genital tract (6) Nicotine dependence: Code(s): F17.200 - Nicotine dependence, unspecified, uncomplicated Plan Reviewed the labs that had not been done her Pap smear and her ultrasound the FSH it puts her in the kenisha menopausal range her TSH is still elevated though is trending better than the previous value. The Pap smear is normal The ultrasound shows a heterogeneous endometrium which may be related to her history of endometriosis. It is slightly thickened at 0.6 cm for postmenopausal range which now the FSH puts her in. Of interest the FSH was done with the Mirena in of course as she is reluctant to have periods again as they were so awful for her and she would bleed very very heavy for well over a week. Discussed that probably the safer thing to do would be do an endometrial biopsy which would almost of necessity involve removing the Mirena IUD as it would be disrupted by doing the endometrial biopsy. If there were any abnormality or if she did have postmenopausal bleeding that would need to be separately evaluated depending on what the finding would be and would refer involve referral to either Dr. Dominguez or [place]. Discussed that the goal is to make sure that she does not have anything cancerous going on. She is in agreement with the plan though since she is not having any problems with the Mirena part of her would like to just keep it in. We will set up an appointment for Mirena removal and EMB. She will be following up with her primary about thyroid follow-up another meds etc.. Recommend eating and having an ibuprofen before the EMB. Chart reviewed in past 2017 Pap was unsatisfactory and I did not find an ultrasound or EMB to compare any findings to. Coding Level of Care Code Est Pt Level 3 (05723) Diagnoses Menorrhagia, premenopausal N92.4 Hypothyroidism E03.9 Perimenopausal symptoms N95.1 Presence of 52 mg levonorgestrel-releasing intrauterine device (IUD) Z97.5 Hx of endometriosis Z87.42 Nicotine dependence F17.200
== END 2023-06-09 12:17 | disposition home or self-care (01) ==
LOC: HO.HWS 10:47
PROVIDERS: PCP Nurse Practitioner Family; Visit Provider Advanced Practice Midwife
DX: N92.4 Excessive bleeding in the premenopausal period (principal); E03.9 Hypothyroidism, unspecified; Z97.5 Presence of (intrauterine) contraceptive device; Z87.42 Personal history of other diseases of the female genital tract; F17.200 Nicotine dependence, unspecified, uncomplicated
CPT/HCPCS: 99213

== ENCOUNTER → 2023-06-09 10:47 | Outpatient (BNVA) | payer OTHER, SELFPAY | PROVIDERS: PCP Nurse Practitioner Family; Visit Provider Advanced Practice Midwife | DX: N92.4 Excessive bleeding in the premenopausal period (principal); N95.1 Menopausal and female climacteric states; E03.9 Hypothyroidism, unspecified; F17.210 Nicotine dependence, cigarettes, uncomplicated; Z97.5 Presence of (intrauterine) contraceptive device; Z87.42 Personal history of other diseases of the female genital tract | CPT/HCPCS: 99212 ==

== ENCOUNTER 2023-07-23 14:06 | Outpatient (AMB) | payer OTHER, SELFPAY ==
--- NOTE | 2023-07-23 14:10 | A.OFFPC_ITS ---
Vital Signs 07/23/23 14:12 Height 5 ft 2.5 in Weight 140 lb 2 oz BMI 25.2 BP 110/72 Blood Pressure Location Lt brachial Position Sitting Pulse 104 H Pulse Source Pulse Oximeter Pulse Oximetry (%) 98 Oxygen Delivery Method Room Air Intake Visit Reasons: Follow up HTN Intake Note: Patient is here to follow up on HTN, Hypothyroidism. Accordion Maker Required: No Lithographic Proofer: Not Required per policy Accompanied by: Self / Same As Patient Allergies bee venom protein (honey bee) Allergy (Intermediate, Verified 07/23/23 14:47) Anaphylaxis penicillin V Allergy (Unknown, Verified 07/23/23 14:47) almost dies when child afte r PCN while in hospital Penicillins [PENICILLINS] Allergy (Unknown, Verified 07/23/23 14:47) ANAPHYLAXIS Medication List - Last Reconciled 07/23/23 by Tanner Thomson MD blood pressure monitor As directed cholecalciferol (vitamin D3) 25 mcg PO DAILY clonazepam 0.5 mg PO DAILY PRN dextroamphetamine-amphetamine 30 mg ER (Adderall XR) 30 mg PO DAILY levothyroxine 25 mcg PO DAILY lisinopril 5 mg PO DAILY omeprazole 20 mg PO DAILY oxcarbazepine (Trileptal) 300 mg PO BID Tobacco use date assessed: 04/14/23 Dental Screening Dental Screen Date: 07/23/23 Did you have a dental visit in the last 12 months?: No Did you have a dental problem in the last 6 months where you did not have access to dental care?: No Was dental information given to patient?: No HPI Follow up HTN HPI Details 48-year-old female presents to the offic e to discuss her medical conditions. I will be assuming her care as her previous provider has left the practice. Patient gives history of under active thyroid and was started on thyroid replacement. A follow-up TSH has not been done yet. Continues to smoke 6 cigarettes a day and nighttime marijuana use. 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 Does not drive. [facility] Medical History High thyroid stimulating hormone (TSH) level Anxiety Low TSH level Encounter to establish care ADHD Affective bipolar disorder GERD (gastroesophageal reflux disease) Surgical History History of tubal ligation Hx of breast reduction, elective Hx of appendectomy Family History Maternal Grandmother Colon cancer Other Mental health disorder Substance use disorder Social History Housing: Apartment Alcohol intake: former Patient Tobacco Use Status: Current everyday Tobacco user Tobacco use type: Cigarette Cigarettes Per Day: 6 e-Cigarette/Vaping Use: Currently Using Second Hand Smoke Exposure: No Substance Use Type: Marijuana service: No Current occupational status: disabled Cognitive needs: No Hearing needs: No Vision needs: No Female Reproductive History Menstrual Age of Menarche: 8 Questionnaire PHQ-9 Over the last 2 weeks, how often have you been bothered by any of the following problems? 1. Little interest or pleasure in doing things: not at all 2. Feeling down, depressed, or hopeless: not at all 3. Trouble falling or staying asleep, or sleeping too much: not at all 4. Feeling tired or having little energy: not at all 5. Poor appetite or overeating: not at all 6. Feeling bad about yourself - or that you are a failure or have let yourself or your family down: not at all 7. Trouble concentrating on things, such as reading the newspaper or watching television: not at all 8. Moving or speaking so slowly that other people could have noticed. Or the opposite - being so fidgety or restless that you have been moving around a lot more than usual: not at all 9. Thoughts that you would be better off or of hurting yourself in some way: not at all Total score: 0 Depression Screening Interpretation: Negative Depression Screening Done: Yes Source: Developed by Drs. Cory Hooper, Payton Stovall, Hunter Spivey and colleagues, with an educational frederick from [employer]. Thrive Questionnaire Date Thrive assessed: 07/23/23 I am a: Patient What is your living situation today?: I have a steady place to live Within the past 12 months, did the food you bought not last and you didn't have the money to get more?: Never true Within the past 12 months, did you worry whether your food would run out before you got money to buy more?: Never true Do you have trouble paying for medicines?: No Do you have trouble getting transportation to medical appointments?: No Do you have trouble paying your heating and electricity bill?: No Do you have trouble taking care of your child, family member or friend?: No Do you have trouble with day-to-day activities such as bathing, preparing meals, shopping, managing finances, etc.?: No Are you currently unemployed and looking for a job?: No Are you interested in more education?: No Currently or been in a relationship where the following occur: no concerns reported THRIVE Score: 0 AUDIT C Alcohol Use Questionnaire (AUDIT-C) 1. How often do you have a drink containing alcohol?: Never Total Score: 0 VIKA-7 AMB Questionnaire VIKA-7 Date VIKA - 7 assessed: 07/23/23 Feeling nervous, anxious, or on edge: 1 = Several days (on medication) Not being able to stop or control worryin = Not at all Worrying too much about different things: 0 = Not at all Trouble relaxin = Not at all Being so restless that it is hard to sit still: 0 = Not at all Becoming easily annoyed or irritable: 0 = Not at all Feeling afraid as if something awful might happen: 0 = Not at all Total VIKA-7 score (0-4 normal; 5-9 mild; 10-14 moderate; 15-21 severe): 1 Source: Developed by Drs. Cory Hooper, Payton Stovall, Hunter Spivey and colleagues, with an educational frederick from [employer]. Physical exam (Primary Care) Vital Signs: Last Vital Signs Pulse 104 H 07/23/23 14:12 BP 110/72 07/23/23 14:12 Pulse Ox 98 07/23/23 14:12 Oxygen Delivery Method Room Air 07/23/23 14:12 Care Plan Goal for BP management: Blood pressure in range. BMI result Body Mass Index 25.2 Tobacco/Smoking Status: Tobacco use Status Tobacco use date assessed 04/14/23 07/23/23 14:19 Patient Tobacco Use Status Current everyday Tobacco 07/23/23 14:19 Tobacco use type Cigarette 07/23/23 14:19 e-Cigarette/Vaping Use Currently Using 07/23/23 14:19 PHQ-9: PHQ-9 Score PHQ-9: Total score 0 07/23/23 14:19 Depression Screening Interpretation: Negative Thrive Assessment: Date of Thrive Assessment Date Thrive assessed 07/23/23 07/23/23 14:19 Currently or been in a relationship where the following occur: no concerns reported Const General: cooperative and healthy appearing Nutritional Appearance: well nourished Orientation/consciousness: patient oriented x3 Limitations: no limitations HENMT Head: Yes normal to inspection Eyes General: appearance normal, both eyes and all related structures Neck Neck: Yes normal visual inspection Chest Chest palpation & inspection: normal palpation of entire chest wall Resp Effort & Inspection: normal respiratory effort Neuro General: patient oriented x3 Assessment and Plan Assessment & Plan (1) Hypothyroidism: Code(s): E03.9 - Hypothyroidism, unspecified Plan: TSH level to be repeated. Will call with the results. (2) Anxiety: Code(s): F41.9 - Anxiety disorder, unspecified Plan: Continue current medications. Coding Level of Care Code Est Pt Level 4 (92175) Diagnoses Hypothyroidism E03.9 Anxiety F41.9
[2023-07-23 14:12] VITALS: BP 110/72; PULSE 104; O2SAT 98; BMI 25.2
== END 2023-07-23 14:42 | disposition home or self-care (01) ==
PROVIDERS: PCP Internal Medicine; Visit Provider Internal Medicine
DX: E03.9 Hypothyroidism, unspecified (principal); F41.9 Anxiety disorder, unspecified
CPT/HCPCS: 99214

== ENCOUNTER 2023-07-29 15:51 | Outpatient (REF) | payer OTHER, SELFPAY ==
[2023-07-29 17:16] LABS: TSH reflex Free T4 4.12 uIU/mL (0.32-4.0)
[2023-07-29 19:52] LABS: Free T4 (Free Thyroxine) 0.85 ng/dL (0.71-1.85)
== END 2023-07-29 15:52 | disposition home or self-care (01) ==
LOC: HO.LAB 15:51
PROVIDERS: PCP Internal Medicine; Visit Provider Internal Medicine
DX: E03.9 Hypothyroidism, unspecified (principal)
CPT/HCPCS: 36415; 84439; 84443

== ENCOUNTER 2023-08-04 08:50 | Outpatient (REF) | payer OTHER, SELFPAY ==
--- NOTE | ~2023-08-04 | MM_ITS ---
EXAMINATION: MM SCREENING DIGITAL BREAST TOMOSYNTHESIS, BILATERAL CLINICAL INFORMATION: Screening. Asymptomatic. The patient is status post bilateral breast reduction. COMPARISON: Mammography: There are no prior mammograms for comparison. TECHNIQUE: Digital breast tomosynthesis is performed in both the craniocaudal and mediolateral oblique views along with computer-aided detection (CAD). Synthesized 2D images are generated from the tomosynthesis. FINDINGS: There are scattered areas of fibroglandular density (ACR BI-RADS breast composition Category b). There are no significant masses, abnormal calcifications, or other abnormalities. Bilateral post reduction changes and bilateral benign calcifications are present. MM/MM tomosynthesis screening BI IMPRESSION: No mammographic evidence of malignancy. ASSESSMENT: BI-RADS BI-RADS 2 - Benign Findings RECOMMENDATION: Routine annual mammography screening. 1 year F/U This examination should not preclude the clinical evaluation of a suspicious palpable abnormality. This patient's information was entered into a reminder system with a target due date for their next mammogram.
== END 2023-08-04 08:51 | disposition home or self-care (01) ==
LOC: HO.MAMMO 08:50
PROVIDERS: PCP Internal Medicine; Visit Provider Internal Medicine
DX: Z12.31 Encounter for screening mammogram for malignant neoplasm of breast (principal)
CPT/HCPCS: 77063; 77067

== ENCOUNTER → 2023-08-04 09:15 | Outpatient (BNV) | payer OTHER, SELFPAY | PROVIDERS: PCP Internal Medicine; Visit Provider Radiology Diagnostic Radiology | DX: Z12.31 Encounter for screening mammogram for malignant neoplasm of breast (principal) | CPT/HCPCS: 77063; 77067 ==

== ENCOUNTER 2024-01-21 14:46 | Outpatient (AMB) | payer OTHER, SELFPAY ==
--- NOTE | 2024-01-21 15:02 | A.OFFPC_ITS ---
Vital Signs 01/21/24 15:04 Height 5 ft 2.5 in Weight 125 lb 4 oz BMI 22.5 BP 130/80 Blood Pressure Location Lt brachial Position Sitting Pulse 88 Pulse Source Pulse Oximeter Pulse Oximetry (%) 97 Oxygen Delivery Method Room Air Intake Visit Reasons: 6mth f/u Intake Note: Patient is here to follow up on HTN, GERD, ADHD, Hyperthyroidism. Complaint of pain in both hands. Billing Representative Required: No Network Strategist: Not Required per policy Accompanied by: Self / Same As Patient Allergies bee venom protein (honey bee) Allergy (Intermediate, Verified 01/22/24 09:12) Anaphylaxis penicillin V Allergy (Unknown, Verified 01/22/24 09:12) almost dies when child afte r PCN while in hospital Penicillins [PENICILLINS] Allergy (Unknown, Verified 01/22/24 09:12) ANAPHYLAXIS Medication List - Last Reconciled 01/22/24 by Tanner Thomson MD acetaminophen (Tylenol Extra Strength) 500 mg PO BID PRN blood pressure monitor As directed cholecalciferol (vitamin D3) 25 mcg PO DAILY clonazepam 0.5 mg PO DAILY PRN dextroamphetamine-amphetamine 30 mg ER (Adderall XR) 30 mg PO DAILY levothyroxine 25 mcg PO DAILY lisinopril 5 mg PO DAILY omeprazole 20 mg PO DAILY oxcarbazepine (Trileptal) 300 mg PO BID quetiapine 50 mg PO BEDTIME Tobacco use date assessed: 01/21/24 Dental Screening Dental Screen Date: 07/23/23 HPI 6mth f/u HPI Details 48-year-[facility]. Patient reports that she is homeless and lives in a tent every night. During the day she spends with her sister. Patient is homeless because she is taking care of her son who has Asperger's disease and can not be in the homeless halfway together. She has filed several applications to secure apartment. Patient is compliant with medications. She reports no illegal drug use. She only uses marijuana occasionally. Requesting a referral for a hoop bender tank and screening colonoscopy. Patient is reporting slight tremor in the hands with morning stiffness. [facility] Medical History (Updated 01/22/24 @ 09:21 by Tanner Thomson MD) Osteoarthritis High thyroid stimulating hormone (TSH) level Anxiety Low TSH level Encounter to establish care ADHD Affective bipolar disorder GERD (gastroesophageal reflux disease) Surgical History History of tubal ligation Hx of breast reduction, elective Hx of appendectomy Family History Maternal Grandmother Colon cancer Other Mental health disorder Substance use disorder Social History Housing: Apartment Alcohol intake: former Patient Tobacco Use Status: Current everyday Tobacco user Tobacco use type: Cigarette Cigarette Packs Per Day: 0.25 Cigarettes Per Day: 3 e-Cigarette/Vaping Use: Currently Using Second Hand Smoke Exposure: No Substance Use Type: Marijuana service: No Current occupational status: disabled Cognitive needs: No Hearing needs: No Vision needs: No Female Reproductive History Menstrual Age of Menarche: 8 Questionnaire Thrive Questionnaire Date Thrive assessed: 07/23/23 VIKA-7 AMB Questionnaire VIKA-7 Date VIKA - 7 assessed: 07/23/23 Source: Developed by Drs. Cory Hooper, Payton Stovall, Hunter Spivey and colleagues, with an educational frederick from [employer]. Physical exam (Primary Care) Vital Signs: Last Vital Signs Pulse 88 01/21/24 15:04 BP 130/80 01/21/24 15:04 Pulse Ox 97 01/21/24 15:04 Oxygen Delivery Method Room Air 01/21/24 15:04 BMI result Body Mass Index 22.5 Tobacco/Smoking Status: Tobacco use Status Tobacco use date assessed 01/21/24 01/21/24 15:21 Patient Tobacco Use Status Current everyday Tobacco 01/21/24 15:21 Tobacco use type Cigarette 01/21/24 15:21 e-Cigarette/Vaping Use Currently Using 01/21/24 15:21 Thrive Assessment: Date of Thrive Assessment Date Thrive assessed 07/23/23 01/21/24 15:21 Const General: cooperative and healthy appearing Nutritional Appearance: well nourished Orientation/consciousness: patient oriented x3 Limitations: no limitations HENMT Head: Yes normal to inspection Eyes General: appearance normal, both eyes and all related structures Neck Neck: Yes normal visual inspection Chest Chest palpation & inspection: normal palpation of entire chest wall Resp Effort & Inspection: normal respiratory effort Neuro General: patient oriented x3 Assessment and Plan Assessment & Plan (1) Hypothyroidism: Code(s): E03.9 - Hypothyroidism, unspecified Plan: Blood work has been ordered. Based on the blood work results, thyroid dosage will be adjusted. (2) Hypertension: Code(s): I10 - Essential (primary) hypertension Plan: Blood pressure is in range. Continue medications at same dosage. (3) Affective bipolar disorder: Code(s): F31.9 - Bipolar disorder, unspecified Plan: Patient sees a psychiatrist in [place]. She is on medications including medications for ADHD from them. I encouraged her to keep following up with them. (4) Osteoarthritis: Code(s): M19.90 - Unspecified osteoarthritis, unspecified site Plan: Patient is beginning to show early osteoarthritis. Extra-strength Tylenol has been added to the regimen. On a different note, screening colonoscopy has been ordered. A lithographic press operator apprentice referral has been made. (5) Cervical cancer screening: Comment: 04/16/2023 Pap is negative with negative HPV. Code(s): Z12.4 - Encounter for screening for malignant neoplasm of cervix Orders: Referrals [facility] Referral Z12.4 - Encounter for screening for malignant neoplasm of cervix Medications: New acetaminophen (Tylenol Extra Strength) 500 mg PO BID PRN 60 tabs 1RF fever Coding Level of Care Code Est Pt Level 4 (67923) Complex EM visit Add On G2211 Diagnoses Hypothyroidism E03.9 Hypertension I10 Affective bipolar disorder F31.9 Osteoarthritis M19.90 Cervical cancer screening Z12.4
[2024-01-21 15:04] VITALS: BP 130/80; PULSE 88; O2SAT 97; BMI 22.5
== END 2024-01-21 15:44 | disposition home or self-care (01) ==
PROVIDERS: PCP Internal Medicine; Visit Provider Internal Medicine
DX: E03.9 Hypothyroidism, unspecified (principal); I10 Essential (primary) hypertension; F31.9 Bipolar disorder, unspecified; M19.90 Unspecified osteoarthritis, unspecified site; Z12.4 Encounter for screening for malignant neoplasm of cervix
CPT/HCPCS: 99214; G2211

== ENCOUNTER 2024-03-07 06:50 | Outpatient (REF) | payer OTHER, SELFPAY ==
[2024-03-07 07:51] LABS: Hematocrit 39.3 % (37.0-47.0); Hemoglobin 13.4 g/dl (12.0-16.0); Mean Corpuscular HGB Conc 34.1 g/dl (31.0-35.0); Mean Corpuscular Hemoglobin 31.2 pg (27.0-33.0); Mean Corpuscular Volume 91.4 fL (80.0-98.0); Mean Platelet Volume 10.7 fL (9.4-12.3); Platelet Count 229 X10*3/uL (160-400); Red Cell Distribution Width 11.8 % (11.0-16.0); White Blood Count 8.4 X10*3/uL (4.8-10.8)
[2024-03-07 08:30] LABS: Alanine Aminotransferase 26 U/L (0-31); Anion Gap 12 (12-20); Aspartate Amino Transferase 23 U/L (5-31); Bilirubin Direct 0.1 mg/dL (0.0-0.5); Bilirubin Total 0.5 mg/dL (0.0-1.0); Blood Urea Nitrogen 17 mg/dL (9-16); Calcium 9.1 mg/dL (8.4-10.2); Carbon Dioxide 28 mmol/L (22-29); Chloride 108 mmol/L (96-108); Cholesterol 130 mg/dL (<200); Estimated Glomerular Filt Rate > 60; Glucose Random 88 mg/dL (60-115); HDL Cholesterol 46 mg/dL (>40); LDL Cholesterol Calculated 64 mg/dL (<100); Sodium 144 mmol/L (135-145); Triglycerides 102 mg/dL (<150)
[2024-03-07 08:39] LABS: Appearance Urine Clear; Color Urine Yellow; Glucose Urine UA Negative (Negative); Leukocyte Esterase Urine Small (1+) (Negative); Nitrite Urine Negative (Negative); PH 5.5 (5.0-9.0); Specific Gravity - Urine 1.015 (1.005-1.025); UMIC TRIGGER UA YES; Urine Blood Moderate (2+) (Negative); Urine Ketones Negative (Negative); Urine Protein Negative (Neg-Trace)
[2024-03-07 08:44] LABS: Alkaline Phosphatase 53 U/L (39-117); Thyroid Stimulating Hormone 5.82 uIU/mL (0.32-4.0)
[2024-03-07 08:52] LABS: Bacteria Urine 2+ (None Seen); Hyaline Casts Urine 0-2 /LPF (0-2); WBC Urine 0-5 /HPF (0-5)
== END 2024-03-07 06:51 | disposition home or self-care (01) ==
LOC: HO.LAB 06:50
PROVIDERS: PCP Internal Medicine; Visit Provider Internal Medicine
DX: E03.9 Hypothyroidism, unspecified (principal); I10 Essential (primary) hypertension
CPT/HCPCS: 36415; 80048; 80061; 80076; 81001; 84443; 85027

== ENCOUNTER 2024-04-26 10:44 | Outpatient (AMB) | payer OTHER, SELFPAY ==
--- NOTE | 2024-04-26 10:55 | A.OFFVIS_ITS ---
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: No Information Interpreted: clinical only Compounder Helper: Compounder Helper Present Allergies bee venom protein (honey bee) Allergy (Intermediate, Verified 04/26/24 10:55) Anaphylaxis penicillin V Allergy (Unknown, Verified 04/26/24 10:55) almost dies when child afte r PCN while in hospital Penicillins [PENICILLINS] Allergy (Unknown, Verified 04/26/24 10:55) ANAPHYLAXIS Medication List - Last Reconciled 04/26/24 by Brandy Guillen CNM acetaminophen (Tylenol Extra Strength) 500 mg PO BID PRN blood pressure monitor As directed cholecalciferol (vitamin D3) 25 mcg PO DAILY clonazepam 0.5 mg PO DAILY PRN dextroamphetamine-amphetamine 30 mg ER (Adderall XR) 30 mg PO DAILY levonorgestrel (Mirena) intrauterine levothyroxine 25 mcg PO DAILY lisinopril 5 mg PO DAILY omeprazole 20 mg PO DAILY oxcarbazepine (Trileptal) 300 mg PO BID quetiapine 50 mg PO BEDTIME Is last menstrual period known: No Post menopausal: Yes HPI HPI 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 She was seen this time last year for ob gyn evaluation. We repeated much of the same issues that were discussed at the visit as she was not able to come back for what ever reason for removal of the IUD and endometrial biopsy which was discussed. Patient has had the Mirena IU S for many years she said it was placed to deal with menorrhagia she previously had been on Depo-Provera and was told that she should be on it any longer she is getting older so she was started with the Mirena IU S further records it was 2017 by and she has not had she does get hot flashes but has getting them she had an FSH done last year that was the menopausal though it was done with the Mirena place. Mirena has now been in place for 7 years. She has not been having any ob gyn concerns at all. She is inclined to not break something that is not broken. She has not had a mammogram for many many years.. She does see her primary care provider and she sees psychiatrist and she is on medications for ADHD and bipolar and is well managed with those the only other non prescribe substance she uses is marijuana to sleep at night.. She and her son feliciano tent that they put up every single evening at [facility] and take it down morning and store it in a storage unit, she and then she goes to her sister's house where she cares for her niece who is 4 years old and she loves her, she eats and showers there. Her son showers at the [facility]. when it is very very cold and they open the shelters they go there at night. They have applications out for apartments all over have been looking but the security deposits are too much and nobody wants to rent to 2 people it with 1 will so she and her son live in the tend together they are able to do it because the tent takes 2 people to put up and they have a system down now. 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 PFSH Medical History (Updated 04/26/24 @ 11:39 by Brandy Guillen CNM) Menorrhagia, premenopausal Osteoarthritis High thyroid stimulating hormone (TSH) level Anxiety Low TSH level Encounter to establish care ADHD Affective bipolar disorder GERD (gastroesophageal reflux disease) Surgical History (Updated 04/26/24 @ 11:39 by Brandy Guillen CNM) History of tubal ligation Hx of breast reduction, elective Hx of appendectomy Family History Maternal Grandmother Colon cancer Other Mental health disorder Substance use disorder Social History Housing: Apartment Alcohol intake: former Patient Tobacco Use Status: Current everyday Tobacco user Tobacco use type: Cigarette Cigarette Packs Per Day: 0.25 Cigarettes Per Day: 3 e-Cigarette/Vaping Use: Currently Using Second Hand Smoke Exposure: No Substance Use Type: Marijuana service: No Current occupational status: disabled Cognitive needs: No Hearing needs: No Vision needs: No Female Reproductive History Menstrual Age of Menarche: 8 control method: progestin IUCD and permanent sterilization Total pregnancies: 2 Full term: 2 Date of last pap smear: 04/16/23 (negative) History of abnormal pap smear: No Date of Mammogram: 08/04/23 Physical Exam Vital Signs: Last Vital Signs BP 118/70 04/26/24 11:02 BMI result Body Mass Index 22.5 Const General: healthy appearing, comfortable, no acute distress, well developed and alert Nutritional Appearance: average body habitus Orientation/consciousness: patient oriented x3 Limitations: no limitations HEENT Head: Yes normocephalic Neck Neck: Yes normal visual inspection Chest Other: Scars from breast reduction surgery. Chest palpation & inspection: normal inspection of the chest Breast/axilla inspection: normal inspection of the breasts and normal inspection of the axillae Breast/axilla palpation: normal palpation of the breasts and normal palpation of the axillae Resp Effort & Inspection: normal respiratory effort GI Inspection: Yes normal to inspection, No Abdominal wall edema and No distended Palpation (GI): Soft to palpation and nontender Other: Postmenopausal changes evident vagina pink atrophic cervix multiparous pink smooth with Mirena strings easily visible cervix long close thick mobile nontender uterus midposition anteverted mobile nontender good tone with Kegel. General: Yes bladder normal to palpation External Female Exam: normal external appearance and normal appearance of the urethra Speculum Exam - Vagina: normal appearance of the vagina, normal palpation and normal vaginal discharge Speculum Exam - Cervix: normal appearance of the cervix, normal palpation and nontender Bimanual exam- vagina & uterus: normal bimanual exam, normal palpation, uterine size normal, bladder normal to palpation, consistency normal, normal palpation, uterine mobility normal, uterine shape normal, No Cervical tenderness present, non-tender and no cervical motion tenderness Bimanual Exam- Adnexa, other: normal adnexae, no masses, normal and No adnexal tenderness Neuro General: patient oriented x3 Results Reviewed Results Reviewed: Name: Casie Cardona Age/Sex: 48/F Attending: Brandy Guillen CNM : 1975 Submitted by: Brandy Guillen CNM Copies to: MR #: [id number] Status: DEP REF Collected: 04/16/23 Location: [facility] Received: 04/16/23 Interpretation Satisfactory for evaluation. Negative for intraepithelial lesion or malignancy. HPV mRNA E6/E7: NOT DETECTED This assay detects E6/E7 viral messenger RNA (mRNA) from 14 high-risk HPV types (16, 18, 31, 33, 35, 39, 45, 51, 52, 56, 58, 59, 66, 68) HPV testing performed by [facility], [place], [place]. See reference laboratory pion of the EMR for entire report. Clinical Information LMP: Mirena IUD Previous PAP test: Unknown date/findings Material Received ThinPrep-Cervical Electronically Signed By: WATSON Wong (ASCP) 04/24/23 1106 The Pap Test is a screening procedure with the inherent possibility of both false negative and false positive results. Results should be interpreted in the context of historic and current clinical findings. Reliability of the Pap Test is enhanced by performing the test on a regular repetitive basis. Patient: Casie Cardona Age/Sex: 48/F MR#: [id number] Page 1 of 1 Assessment & Plan Assessment & Plan (1) Menorrhagia, premenopausal: Comment: Patient states that the Mirena was placed to deal with this she has not bled since it was put in. may be due for replacement.(discussed again 04/26/24-she is not having any problems with it will reassess with ultrasound to assess for changes from last year and discuss afterwards. It has been in 7 years now. Code(s): N92.4 - Excessive bleeding in the premenopausal period Category: Medical (2) Perimenopausal symptoms: Code(s): N95.1 - Menopausal and female climacteric states Category: Medical (3) Presence of 52 mg levonorgestrel-releasing intrauterine device (IUD): Comment: Per [facility], Mirena IUD was inserted by Dr. Daniels on 03/26/2017. Code(s): Z97.5 - Presence of (intrauterine) contraceptive device Category: Social Hx (4) Hx of endometriosis: Code(s): Z87.42 - Personal history of other diseases of the female genital tract Category: Medical (5) Cervical cancer screening: Comment: 04/16/2023 Pap is negative with negative HPV. Code(s): Z12.4 - Encounter for screening for malignant neoplasm of cervix Category: Medical (6) ADHD: Code(s): F90.9 - Attention-deficit hyperactivity disorder, unspecified type Category: Medical (7) Affective bipolar disorder: Code(s): F31.9 - Bipolar disorder, unspecified Category: Medical (8) Homeless: Comment: Lives in tent with her son, eats and showers and does laundry at her sister's during day... Has multiple applications out for apartments... Code(s): Z59.00 - Homelessness unspecified Category: Social Hx (9) Hx of breast reduction, elective: Code(s): Z98.890 - Other specified postprocedural states Category: Surgical (10) Breast cancer screening: Code(s): Z12.39 - Encounter for other screening for malignant neoplasm of breast Category: Medical Plan Patient is not a new patient. She was seen this time last year for ob gyn evaluation. We repeated much of the same issues that were discussed at the visit as she was not able to come back for what ever reason for removal of the IUD and endometrial biopsy which was discussed. Patient has had the Mirena IU S for many years she said it was placed to deal with menorrhagia she previously had been on Depo-Provera and was told that she should be on it any longer she is getting older so she was started with the Mirena IU S further records it was 2017 by and she has not had she does get hot flashes but has getting them she had an FSH done last year that was the menopausal though it was done with the Mirena place. Mirena has now been in place for 7 years. She has not been having any ob gyn concerns at all. She is inclined to not break something that is not broken. She has not had a mammogram for many many years.. She does see her primary care provider and she sees psychiatrist and she is on medications for ADHD and bipolar and is well managed with those the only other non prescribed substance she uses is marijuana to sleep at night.. She and her son live in a tent that they put up every single evening [facility] and take it down q morning and store it in a storage unit she and then she goes to her sister's house where she cares for her niece who is 4 years old and she loves her, she eats and showers there. Her son showers at the [facility] when it is very very cold and they open the shelters and they go there at night. They have applications out for apartments all over have been looking but the security deposits are too much and nobody wants to rent to 2 people it with 1 will so she and her son live in the tend together they are able to do it because the tent takes 2 people to put up and they have a system down now. 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 Discussed that sometimes not looking for trouble when they are larger she has to be concerned about may be a valid way to look at things but at the minimum we will order a repeat ultrasound to see if anything any different in her uterus and also her mammogram and we will have a visit afterwards to explore options if everything is okay she could leave the Mirena in for another year. Meanwhile I hope that she is able to find housing before it gets any cold Orders: Orders US pelvic and transvaginal Today N92.4 - Excessive bleeding in the premenopausal period, N95.1 - Menopausal and female climacteric states, Z97.5 - Presence of (intrauterine) contraceptive device MM tomosynthesis screening BI Today Z12.31 - Encounter for screening mammogram for malignant neoplasm of breast, Z12.39 - Encounter for other screening for malignant neoplasm of breast, Z98.890 - Other specified postprocedural states Coding Level of Care Code Est Pt Prev Care 40-64y(78901) Diagnoses Menorrhagia, premenopausal N92.4 Perimenopausal symptoms N95.1 Presence of 52 mg levonorgestrel-releasing intrauterine device (IUD) Z97.5 Hx of endometriosis Z87.42 Cervical cancer screening Z12.4 ADHD F90.9 Affective bipolar disorder F31.9 Homeless Z59.00 Hx of breast reduction, elective Z98.890 Breast cancer screening Z12.39
[2024-04-26 11:02] VITALS: BP 118/70; BMI 22.5
== END 2024-04-26 11:41 | disposition home or self-care (01) ==
LOC: HO.HWSM 10:44
PROVIDERS: PCP Internal Medicine; Visit Provider Advanced Practice Midwife
DX: Z01.419 Encounter for gynecological examination (general) (routine) without abnormal findings (principal); N92.4 Excessive bleeding in the premenopausal period; N95.1 Menopausal and female climacteric states; Z59.00 Homelessness unspecified; Z97.5 Presence of (intrauterine) contraceptive device; Z87.42 Personal history of other diseases of the female genital tract; F90.9 Attention-deficit hyperactivity disorder, unspecified type; F31.9 Bipolar disorder, unspecified
CPT/HCPCS: 99396

== ENCOUNTER → 2024-04-26 10:44 | Outpatient (BNVA) | payer OTHER, SELFPAY | PROVIDERS: PCP Internal Medicine; Visit Provider Advanced Practice Midwife | DX: Z01.419 Encounter for gynecological examination (general) (routine) without abnormal findings (principal); N92.4 Excessive bleeding in the premenopausal period; N95.1 Menopausal and female climacteric states; F90.9 Attention-deficit hyperactivity disorder, unspecified type; F31.9 Bipolar disorder, unspecified; Z59.00 Homelessness unspecified; Z98.890 Other specified postprocedural states; Z97.5 Presence of (intrauterine) contraceptive device; Z87.42 Personal history of other diseases of the female genital tract | CPT/HCPCS: 99396 ==

== ENCOUNTER 2024-05-03 07:43 | Outpatient (AMB) | payer OTHER, SELFPAY ==
--- NOTE | 2024-05-03 07:50 | A.OFFPC_ITS ---
Vital Signs 05/03/24 07:51 Height 5 ft 2.5 in Weight 128 lb BMI 23.0 BP 110/70 Blood Pressure Location Lt brachial Position Sitting Pulse 103 H Pulse Source Pulse Oximeter Pulse Oximetry (%) 99 Oxygen Delivery Method Room Air Intake Visit Reasons: PE Intake Note: Patient is here today for a physical. Pt decline flu shot today. Perforator Typist Required: No Ultrasound Technologist: Not Required per policy Accompanied by: Self / Same As Patient Allergies bee venom protein (honey bee) Allergy (Intermediate, Verified 05/03/24 07:51) Anaphylaxis penicillin V Allergy (Unknown, Verified 05/03/24 07:51) almost dies when child afte r PCN while in hospital Penicillins [PENICILLINS] Allergy (Unknown, Verified 05/03/24 07:51) ANAPHYLAXIS Tobacco use date assessed: 05/03/24 Dental Screening Dental Screen Date: 07/23/23 HPI PE HPI Details 49-year-old female presents to the [facility] requesting an annual physical. Patient continues to be homeless. Compliant with all her medications. Lives in a tent with her son. Smokes 4 cigarettes a day. Requests that the mammogram be scheduled again. [facility] Medical History (Updated 05/03/24 @ 08:09 by Tanner Thomson MD) Encounter for colonoscopy in patient with family history of colon polyps (~07/23/23) Homeless Menorrhagia, premenopausal Osteoarthritis High thyroid stimulating hormone (TSH) level Anxiety Low TSH level Encounter to establish care ADHD Affective bipolar disorder GERD (gastroesophageal reflux disease) Surgical History History of tubal ligation Hx of breast reduction, elective Hx of appendectomy Family History Maternal Grandmother Colon cancer Other Mental health disorder Substance use disorder Social History Housing: Apartment Alcohol intake: former Patient Tobacco Use Status: Current everyday Tobacco user Tobacco use type: Cigarette Cigarette Packs Per Day: 0.25 Cigarettes Per Day: 3 e-Cigarette/Vaping Use: Currently Using Second Hand Smoke Exposure: No Substance Use Type: Marijuana service: No Current occupational status: disabled Cognitive needs: No Hearing needs: No Vision needs: No Female Reproductive History Menstrual Age of Menarche: 8 Questionnaire PHQ-9 Over the last 2 weeks, how often have you been bothered by any of the following problems? 1. Little interest or pleasure in doing things: not at all 2. Feeling down, depressed, or hopeless: not at all 3. Trouble falling or staying asleep, or sleeping too much: not at all 4. Feeling tired or having little energy: more than half the days 5. Poor appetite or overeating: not at all 6. Feeling bad about yourself - or that you are a failure or have let yourself or your family down: several days 7. Trouble concentrating on things, such as reading the newspaper or watching television: not at all 8. Moving or speaking so slowly that other people could have noticed. Or the opposite - being so fidgety or restless that you have been moving around a lot more than usual: not at all 9. Thoughts that you would be better off or of hurting yourself in some way: not at all Total score: 3 Depression Screening Interpretation: Positive Depression Screening Done: Yes Source: Developed by Drs. Cory Hooper, Payton Stovall, Hunter Spivey and colleagues, with an educational frederick from [employer]. Thrive Questionnaire Date Thrive assessed: 05/03/24 I am a: Patient What is your living situation today?: I do not have a steady places to live I am living in a park Within the past 12 months, did the food you bought not last and you didn't have the money to get more?: Sometimes True Within the past 12 months, did you worry whether your food would run out before you got money to buy more?: Sometimes True Do you have trouble paying for medicines?: No Do you have trouble getting transportation to medical appointments?: No Do you have trouble paying your heating and electricity bill?: No Do you have trouble taking care of your child, family member or friend?: No Do you have trouble with day-to-day activities such as bathing, preparing meals, shopping, managing finances, etc.?: Yes Are you currently unemployed and looking for a job?: No Are you interested in more education?: No Please select the resources that you would like help with: Housing/Retirement Currently or been in a relationship where the following occur: No concerns reported THRIVE Score: 3 AUDIT C Alcohol Use Questionnaire (AUDIT-C) 1. How often do you have a drink containing alcohol?: Never 3. How often do you have six or more drinks on one occasion?: Never Total Score: 0 VIKA-7 AMB Questionnaire VIKA-7 Date VIKA - 7 assessed: 05/03/24 Feeling nervous, anxious, or on edge: 1 = Several days Not being able to stop or control worryin = Not at all Worrying too much about different things: 1 = Several days Trouble relaxin = Several days Being so restless that it is hard to sit still: 1 = Several days Becoming easily annoyed or irritable: 0 = Not at all Feeling afraid as if something awful might happen: 1 = Several days Total VIKA-7 score (0-4 normal; 5-9 mild; 10-14 moderate; 15-21 severe): 5 Source: Developed by Drs. Cory Hooper, Payton Stovall, Hunter Spivey and colleagues, with an educational frederick from [employer]. Physical exam (Primary Care) Vital Signs: Last Vital Signs Pulse 103 H 05/03/24 07:51 BP 110/70 05/03/24 07:51 Pulse Ox 99 05/03/24 07:51 Oxygen Delivery Method Room Air 05/03/24 07:51 BMI result Body Mass Index 23.0 Tobacco/Smoking Status: Tobacco use Status Tobacco use date assessed 05/03/24 05/03/24 07:57 Patient Tobacco Use Status Current everyday Tobacco 05/03/24 07:57 Tobacco use type Cigarette 05/03/24 07:57 e-Cigarette/Vaping Use Currently Using 05/03/24 07:57 PHQ-9: PHQ-9 Score PHQ-9: Total score 3 05/03/24 07:57 Depression Screening Interpretation: Positive Thrive Assessment: Date of Thrive Assessment Date Thrive assessed 05/03/24 05/03/24 07:57 Currently or been in a relationship where the following occur: No concerns reported Const General: cooperative and healthy appearing Nutritional Appearance: well nourished Orientation/consciousness: patient oriented x3 Limitations: no limitations HENMT Head: Yes normal to inspection Eyes General: appearance normal, both eyes and all related structures Neck Neck: Yes normal visual inspection Chest Chest palpation & inspection: normal palpation of entire chest wall Resp Effort & Inspection: normal respiratory effort Neuro General: patient oriented x3 Coding Level of Care Code Est Pt Prev Care 40-64y(42103) Diagnoses Homeless Z59.00 Annual physical exam Z00.00 ADHD F90.9 Hypothyroidism E03.9 Assessment & Plan Assessment & Plan (1) Homeless: Comment: Lives in tent with her son, eats and showers and does laundry at her sister's during day... Has multiple applications out for apartments... Code(s): Z59.00 - Homelessness unspecified Category: Social Hx Plan: As above. (2) Annual physical exam: Code(s): Z00.00 - Encounter for general adult medical examination without abnormal findings Plan: ELSIE revd with patient. Patient declines the flu vaccine. Mammogram has been ordered again (3) ADHD: Code(s): F90.9 - Attention-deficit hyperactivity disorder, unspecified type Category: Medical Plan: Continue current medications. Patient sees a provider in [place] for medications and therapy. (4) Hypothyroidism: Code(s): E03.9 - Hypothyroidism, unspecified Category: Medical Plan: TSH in range. Continue meds at same dosage.
[2024-05-03 07:51] VITALS: BP 110/70; PULSE 103; O2SAT 99; BMI 23.0
== END 2024-05-03 08:18 | disposition home or self-care (01) ==
LOC: HO.HMCH 07:43
PROVIDERS: PCP Internal Medicine; Visit Provider Internal Medicine
DX: Z59.00 Homelessness unspecified (principal); Z00.00 Encounter for general adult medical examination without abnormal findings; F90.9 Attention-deficit hyperactivity disorder, unspecified type; E03.9 Hypothyroidism, unspecified

== ENCOUNTER → 2024-05-03 07:43 | Outpatient (BNVA) | payer OTHER, SELFPAY | PROVIDERS: PCP Internal Medicine; Visit Provider Internal Medicine | DX: Z00.01 Encounter for general adult medical examination with abnormal findings (principal); F90.9 Attention-deficit hyperactivity disorder, unspecified type; E03.9 Hypothyroidism, unspecified; Z59.00 Homelessness unspecified | CPT/HCPCS: 96127; 99396 ==

== ENCOUNTER → 2024-07-25 10:44 | Outpatient (BNV) | payer OTHER, SELFPAY | PROVIDERS: PCP Internal Medicine; Visit Provider Radiology Diagnostic Radiology | DX: N92.4 Excessive bleeding in the premenopausal period (principal); Z97.5 Presence of (intrauterine) contraceptive device | CPT/HCPCS: 76830; 76856 ==

== ENCOUNTER 2024-08-05 15:26 | Outpatient (REF) | payer OTHER, SELFPAY | END 2024-08-05 15:27 | disposition home or self-care (01) | LOC: HO.MAMMO 15:26 | PROVIDERS: PCP Internal Medicine; Visit Provider Advanced Practice Midwife | DX: Z12.31 Encounter for screening mammogram for malignant neoplasm of breast (principal) | CPT/HCPCS: 77063; 77067 ==

== ENCOUNTER → 2024-08-05 15:45 | Outpatient (BNV) | payer OTHER, SELFPAY | PROVIDERS: PCP Internal Medicine; Visit Provider Internal Medicine | DX: Z12.31 Encounter for screening mammogram for malignant neoplasm of breast (principal) | CPT/HCPCS: 77063; 77067 ==

== ENCOUNTER 2024-08-16 13:14 | Outpatient (AMB) | payer OTHER, SELFPAY ==
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
--- OUTSIDE RECORDS SUMMARY | 2024-08-16 14:11 | XMS_ITS ---
Author Organization [facility] Address [address] [place] [id number] Care Team Providers Care Estimating Manager Name Role Phone Carol Kwok NP Primary Care Provider Unavail wilmar Pedroza Jr, Golden Unavailable [phone] REASON FOR VISIT Pt no show Encounters Encounter Location Date Provider Diagnosis [facility] [address] [place] [phone] 05/06/2023 Golden Pedroza Jr PLAN OF TREATMENT No Information
--- OUTSIDE RECORDS SUMMARY | 2024-08-16 14:11 | XMS_ITS ---
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
--- OUTSIDE RECORDS SUMMARY | 2024-08-16 14:11 | XMS_ITS | Patient Health Record ---
Author Organization [facility] Address [address] [place] [address] Care Team Providers Care Acid Strength Inspector Name Role Phone Rissa TRIPATHI, Carol Primary Care Provider Unavail able Golden Pedroza Jr Unavailable [phone] ALLERGIES Allergen (clinical drug ingredient) Drug/Non Drug Allergy documented on EMR Reaction Allergy Type Onset Date Status Penicillin Unknown Drug Allergy Active REASON FOR REFERRAL No Information MEDICATIONS Medication SIG (Take, Route, Frequency, Duration) Notes Start Date End Date Status Colyte with Flavor Packs 240 GM As directed Orally Over the specified time. for 1 day(s) 07/25/2015 Active Ferrous Sulfate 325 (65 Fe) MG 1 tablet Orally Once a day Active Pantoprazole Sodium 40 MG 1 tablet Orally Once a day for 30 needs to schdule office visit. Active OXcarbazepine 600 MG TAKE 1 TABLET BY MOUTH 3 TIMES A DAY Oral for 30 Active Vyvanse 50 MG TAKE 1 TABLET BY MOUTH AT NOON Oral Once a day Active SOCIAL HISTORY Sex Assigned At : Social History Observation Description Sex Assigned At Unknown PROBLEMS Problem Type ICD Code Onset Dates Problem Status W/U Status Risk SNOMED Code Notes Problem Esophageal reflux (530.81) Active confirmed 411729362 Problem Vomiting (787.03) Active confirmed 446983478 Problem Iron deficiency anemia due to chronic blood loss (D50.0) Active confirmed 29953021 Problem Gastro-esophagea l reflux disease without esophagitis (K21.9) Active confirmed 085227491 PLAN OF TREATMENT Future Test Test Name Order Date UPPER GI ENDOSCOPY 11/30/2014 COLONOSCOPY 07/25/2015 Insurance Providers Payer Name Payer Address Payer Phone Subscriber Number Group Number Insured Name Patient Relationship to Insured Coverage Start Date Coverage End Date [facility] [address] [place] [phone] [id number] CRISTINA KOHLER Self - patient is the insured MEDICAL (GENERAL) HISTORY Medical History History ICD Code ADHD bipolar disorder asthma Denies NM,DM,CVA,renal disease Surgical History Surgery Date(Month/Year) tubal ligation 1996 appendectomy 1981
== END 2024-08-16 13:49 | disposition home or self-care (01) ==
LOC: HO.HWSM 13:14
PROVIDERS: PCP Internal Medicine; Visit Provider Advanced Practice Midwife
DX: N92.4 Excessive bleeding in the premenopausal period (principal); Z97.5 Presence of (intrauterine) contraceptive device; Z59.00 Homelessness unspecified
CPT/HCPCS: 99213

== ENCOUNTER 2024-10-13 10:26 | Outpatient (AMB) | payer OTHER, SELFPAY ==
[2024-10-13 10:29] VITALS: BP 120/80; PULSE 91; RESP 16; TEMP 36.9; O2SAT 99; BMI 24.8
--- NOTE | 2024-10-13 10:29 | MHC.PC.OV ---
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: No Accompanied by: Self / Same As Patient Allergies bee venom protein (honey bee) Allergy (Intermediate, Verified 10/13/24 11:08) Anaphylaxis penicillin V Allergy (Unknown, Verified 10/13/24 11:08) almost dies when child afte r PCN while in hospital Penicillins [PENICILLINS] Allergy (Unknown, Verified 10/13/24 11:08) ANAPHYLAXIS Medication List - Last Reconciled 10/13/24 by WILMA Pike acetaminophen (Tylenol Extra Strength) 500 mg PO BID PRN blood pressure monitor As directed cholecalciferol (vitamin D3) 25 mcg PO DAILY clonazepam 0.5 mg PO DAILY PRN dextroamphetamine-amphetamine 20 mg 1 tab PO DAILY dextroamphetamine-amphetamine 25 mg ER 1 cap PO QAM levonorgestrel (Mirena) intrauterine levothyroxine 25 mcg PO DAILY lisinopril 5 mg PO DAILY omeprazole 20 mg PO DAILY oxcarbazepine 150 mg PO BID quetiapine 300 mg PO BEDTIME Tobacco use date assessed: 10/13/24 Dental Screening Dental Screen Date: 10/13/24 Did you have a dental visit in the last 12 months?: Yes Did you have a dental problem in the last 6 months where you did not have access to dental care?: No Was dental information given to patient?: Patient has dentist HPI really bad ear infection HPI Details The patient is a 49-year-old female presenting with complaints of an ear infection. She reports a history of recurrent ear infections that typically resolve without intervention. The current episode began about a week ago, with symptoms including dizziness, decreased hearing, and a sensation of congestion in the ears, described as feeling like there is a balloon in her head. She notes this episode's severity is more pronounced than usual, contributing to her anxiety. Additionally, the patient experienced a fever recently and comments on a persistent cough, attributed to her lengthy history of smoking. She suspects seasonal allergies are exacerbating her symptoms, mentioning previous episodes typically coincide with seasonal changes. Her history includes no significant pulmonary disease, although she is a chronic smoker. Other symptoms include throat irritation due to postnasal drip, which she believes is connected to her chronic rhinitis. She has managed her gastroesophageal reflux disease effectively with omeprazole. [facility]LY [facility] Medical History High thyroid stimulating hormone (TSH) level Encounter for colonoscopy in patient with family history of colon polyps (~07/23/23) Homeless Menorrhagia, premenopausal Osteoarthritis Anxiety Low TSH level Encounter to establish care ADHD Affective bipolar disorder GERD (gastroesophageal reflux disease) Surgical History History of tubal ligation Hx of breast reduction, elective Hx of appendectomy Family History Maternal Grandmother Colon cancer Other Mental health disorder Substance use disorder Social History Housing: Apartment Alcohol intake: former Patient Tobacco Use Status: Current everyday Tobacco user Tobacco use type: Cigarette Cigarette Packs Per Day: 0.25 Cigarettes Per Day: 4 e-Cigarette/Vaping Use: Currently Using Second Hand Smoke Exposure: No Substance Use Type: Marijuana service: No Current occupational status: disabled Cognitive needs: No Hearing needs: No Vision needs: No Female Reproductive History Menstrual Age of Menarche: 8 Questionnaire Thrive Questionnaire Date Thrive assessed: 10/13/24 I am a: Patient What is your living situation today?: I do not have a steady places to live [place] living [place] a park Within the past 12 months, did the food you bought not last and you didn't have the money to get more?: Sometimes True Within the past 12 months, did you worry whether your food would run out before you got money to buy more?: Sometimes True Do you have trouble paying for medicines?: No Do you have trouble getting transportation to medical appointments?: No Do you have trouble paying your heating and electricity bill?: No Do you have trouble taking care of your child, family member or friend?: No Do you have trouble with day-to-day activities such as bathing, preparing meals, shopping, managing finances, etc.?: Yes Are you currently unemployed and looking for a job?: No Are you interested in more education?: No Please select the resources that you would like help with: Housing/Group Home Currently or been in a relationship where the following occur: No concerns reported THRIVE Score: 3 AUDIT C Alcohol Use Questionnaire (AUDIT-C) 1. How often do you have a drink containing alcohol?: Never 3. How often do you have six or more drinks on one occasion?: Never Total Score: 0 Score Reviewed/Action Taken: No VIKA-7 AMB Questionnaire VIKA-7 Date VIKA - 7 assessed: 05/03/24 Source: Developed by Drs. Cory Hooper, Payton Stovall, Hunter Spivey and colleagues, with an educational frederick from [employer]. Review of Systems Const Reports fever(s) (Recent) and Denies headache(s) Eyes Denies loss of vision ENT Denies vertigo, Reports dizziness, Denies headache(s), Reports hearing loss (Decreased hearing) and Reports sore throat (Throat irritation) Card Denies chest pain, Denies leg edema and Denies lightheadedness Resp Denies cough, Denies hemoptysis and Denies wheezing GI Denies abdominal pain, Denies melena, Denies constipation, Denies diarrhea and Denies vomiting Neuro Denies Abnormal speech present, Denies behavioral changes, Denies vertigo, Reports dizziness, Denies headache(s), Denies loss of vision and Denies memory loss Psych Reports anxiety, Denies behavioral changes, Denies depression, Denies memory loss and Denies panic attacks Aller/Immun Denies wheezing Physical exam (Primary Care) Vital Signs: Last Vital Signs Temp 98.4 F 10/13/24 10:29 Pulse 91 10/13/24 10:29 Resp 16 10/13/24 10:29 BP 120/80 10/13/24 10:29 Pulse Ox 99 10/13/24 10:29 Oxygen Delivery Method Room Air 10/13/24 10:29 BMI result Body Mass Index 24.8 Tobacco/Smoking Status: Tobacco use Status Tobacco use date assessed 10/13/24 10/13/24 10:43 Patient Tobacco Use Status Current everyday Tobacco 10/13/24 10:43 Tobacco use type Cigarette 10/13/24 10:43 e-Cigarette/Vaping Use Currently Using 10/13/24 10:43 Thrive Assessment: Date of Thrive Assessment Date Thrive assessed 10/13/24 10/13/24 10:43 Currently or been in a relationship where the following occur: No concerns reported Const General: healthy appearing, no acute distress, alert and awake Nutritional Appearance: well nourished Orientation/consciousness: oriented to person, oriented to place and oriented to time HENMT Ears: TM abnormal bulging, dull and wth effusion General nose exam: Abnormal mucous membranes and turbinates present boggy and erythematous and Nasal discharge present purulent on the left Throat: Yes posterior oropharynx normal Eyes Conjunctivae: conjunctivae normal Sclerae: sclerae normal Pupils: Equal, round and reactive pupils present Neck Neck: Yes no lymphadenopathy and Yes no JVD Thyroid: Thyroid normal Carotids: no bruits Resp Effort & Inspection: normal respiratory effort and not tachypneic Auscultation: no crackles, no rales, no rhonchi and no wheezes Cardio Rate: regular rate Rhythm: regular rhythm Heart sounds: no murmurs and normal S1 and S2 GI Palpation (GI): Soft to palpation, nontender, no hepatomegaly and no splenomegaly Auscultation: normal bowel sounds Neuro General: oriented to person, oriented to place and oriented to time Cranial nerves: Yes Equal, round and reactive pupils present Speech: No Abnormal speech present Gait exam (Neuro): Normal gait present Psych Mental Status: mental status grossly normal Speech and movement: Normal speech and movement present Affect: normal affect Attitude: cooperative Thought process: Normal thought process present Coding Level of Care Code Est Pt Level 3 (00223) Diagnoses Rhinosinusitis J32.9 Otitis media H66.90 Chronicity: acute Otitis media type: unspecified Gastroesophageal reflux disease, unspecified whether esophagitis present K21.9 Esophagitis presence: esophagitis presence not specified Hypothyroidism, unspecified type E03.9 Hypothyroidism type: unspecified Time Spent (min) 32 Assessment & Plan Assessment & Plan (1) Rhinosinusitis: Code(s): J32.9 - Chronic sinusitis, unspecified Category: Medical (2) Otitis media: Code(s): H66.90 - Otitis media, unspecified, unspecified ear Category: Medical Qualifiers: Chronicity: acute Otitis media type: unspecified Qualified Code(s): H66.90 - Otitis media, unspecified, unspecified ear (3) GERD (gastroesophageal reflux disease): Code(s): K21.9 - Gastro-esophageal reflux disease without esophagitis Category: Medical Qualifiers: Esophagitis presence: esophagitis presence not specified Qualified Code(s): K21.9 - Gastro-esophageal reflux disease without esophagitis (4) Hypothyroidism: Code(s): E03.9 - Hypothyroidism, unspecified Category: Medical Qualifiers: Hypothyroidism type: unspecified Qualified Code(s): E03.9 - Hypothyroidism, unspecified Plan The patient presents with symptoms indicative of acute otitis media and associated allergic rhinitis. A therapeutic regimen involving azithromycin is initiated due to her penicillin allergy, and antihistamines such as Claritin or Zyrtec will help alleviate rhinitis symptoms and reduce fluid accumulation. Continued use of omeprazole for GERD control is confirmed as effective. I encouraged smoking cessation due to potential health benefits. The patient's medication regimen should maintain appropriate timing to optimize efficacy, especially concerning her thyroid and other medications. I will continue monitoring the patient's anxiety levels, recognizing the role exacerbated ear congestion plays. Follow-up visits will assess treatment efficacy and symptom resolution. Patient was informed and verbally consented to the use of an ambient scribe for clinic note documentation during this visit. Medications: New loratadine (Allergy Relief (loratadine)) 10 mg PO DAILY PRN 30 tabs 0RF allergy symptoms 30 days fluticasone propionate 50 mcg/actuation administer into each nostril 2 sprays intranasal BID 16 grams 0RF azithromycin For 250 mg dose pack: take 500 mg today (day 1), then 250 mg for 4 days (days 2-5) PO 6 tabs 0RF H66.90 - Otitis media, unspecified, unspecified ear Patient Instructions: - Begin azithromycin 500 mg first dose, then 250 mg daily for the next four days. - Use non-drowsy antihistamines like Claritin or Zyrtec for nasal congestion. - Continue omeprazole as prescribed for heartburn relief. - Consider using a nasal spray to help open nasal passages. - Avoid taking thyroid medication with other medications, ensuring an hour gap. - Aim to reduce smoking; explore cessation options for better health. - Monitor ear symptoms and anxiety levels. - Schedule follow-up visit if symptoms persist or worsen.
--- OUTSIDE RECORDS SUMMARY | 2024-10-13 12:32 | XMS_ITS ---
Author Organization [facility] Address [address] [place] [id number] Care Team Providers Care Salesperson Flowers Name Role Phone Rissa TRIPATHI, Carol Primary Care Provider Unavail wilmar Pedroza Jr, Golden Elkins REASON FOR VISIT Patient presents today for a COLON SCREENING Encounters Encounter Location Date Provider Diagnosis [facility] [address] [place] [id number] 05/06/2023 Golden Pedroza Jr Plan Of Treatment No Information Progress Notes * CRISTINA KOHLERDOB:[birth year] (49 yo F)Acc No.[id number]:05/06/2023 Progress Notes Patient:?CRISTINA KOHLER Provider:?Golden Pedroza MD :1975???Age:48 Y???Sex:Female D ate:05/06/2023 Address:[address] [place], [place] [id number] Pcp:Carol Kwok NP Subjective: * Chief Complaints: * ???1. Patient presents today for a COLON SCREENING. * Medical History:? Objective: * Vitals:? Assessment: Plan: * Treatment: * * The named appointment provid er may or may not be the originator of this progress note, and it is not deemed complete until electronically signed by the appointment provider. Sign off status: Pending * Provider:?Golden Pedroza MD Date:?1 07/06/2022 Generated for Filomena park/Trudy/eTransmitting on:?10/13/2024 12:31 PM EDT
--- OUTSIDE RECORDS SUMMARY | 2024-10-13 12:32 | XMS_ITS ---
Author Organization [facility] Address [address] [place] [phone] Care Team Providers Care Real Estate Closing Coordinator Name Role Phone Rissa TRIPATHI, Carol Primary Care Provider Unavail wilmar Pedroza Jr, Golden Unavailable [phone] REASON FOR VISIT Pt no show Encounters Encounter Location Date Provider Diagnosis [facility] [address] [place] [phone] 05/06/2023 Golden Pedroza Jr Plan Of Treatment No Information Progress Notes * JOSE FSANTIAGO PRYORCHAPARRODOB:[birth year] (48 yo F)Acc No.[id number]:05/06/2023 Patient:?CRISTINA KOHLER :1975???Age:48 Y???Sex:Female Address:[address] [place] [address], [address] * true * Date:? Generated for Filomena park/Trudy/eTransmitting on:?10/13/2024 12:32 PM EDT
--- OUTSIDE RECORDS SUMMARY | 2024-10-13 12:32 | XMS_ITS | Patient Health Record ---
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 Name Role Phone Rissa TRIPATHI, Carol Primary Care Provider Unavail able Golden Pedroza Jr Unavailable Allergies Allergen (clinical drug ingredient) Drug/Non Drug Allergy documented on EMR Reaction Allergy Type Onset Date Status Penicillin Unknown Drug Allergy Active Reason For Referral No Information Medications Medication SIG (Take, Route, Frequency, Duration) Notes [...] AT NOON Oral Once a day Active Problems Problem Type SNOMED Code ICD Code Onset Dates Problem Status W/U Status Risk Notes Problem 372821726 Esophageal reflux (530.81) Active confirmed Problem 887311153 Vomiting (787.03) Active confirmed Problem 734288419 Gastro-esophagea l reflux disease without esophagitis (K21.9) Active confirmed Problem 54021100 Iron deficiency anemia due to chronic blood loss (D50.0) Active confirmed Plan Of Treatment Future Test Test Name Order Date UPPER GI ENDOSCOPY 11/30/2014 COLONOSCOPY 07/25/2015 Insurance Providers Payer Name Payer Address Payer Phone Subscriber Number Group Number Insured Name Patient Relationship to Insured Coverage Start Date Coverage End Date [facility] [address] [place] [phone] [id number] CRISTINA KOHLER Self - patient is the insured Medical (General) History Medical History History ICD Code ADHD bipolar disorder asthma Denies NV,DM,CVA,renal disease Surgical History Surgery Date(Month/Year) tubal ligation 1996 appendectomy 1981
== END 2024-10-13 11:53 | disposition home or self-care (01) ==
LOC: HO.HMCH 10:27
PROVIDERS: PCP Internal Medicine
DX: J32.9 Chronic sinusitis, unspecified (principal); H66.90 Otitis media, unspecified, unspecified ear; K21.9 Gastro-esophageal reflux disease without esophagitis; E03.9 Hypothyroidism, unspecified

== ENCOUNTER → 2024-10-13 10:26 | Outpatient (BNVA) | payer OTHER, SELFPAY | PROVIDERS: PCP Internal Medicine | DX: H65.03 Acute serous otitis media, bilateral (principal); J32.9 Chronic sinusitis, unspecified; K21.9 Gastro-esophageal reflux disease without esophagitis; E03.9 Hypothyroidism, unspecified; Z88.0 Allergy status to penicillin | CPT/HCPCS: 99212 ==

== ENCOUNTER 2024-11-03 13:24 | Outpatient (REF) | payer OTHER, SELFPAY ==
[2024-11-03 14:22] LABS: Hematocrit 36.8 % (37.0-47.0); Hemoglobin 12.9 g/dl (12.0-16.0); Mean Corpuscular HGB Conc 35.1 g/dl (31.0-35.0); Mean Corpuscular Volume 88.5 fL (80.0-98.0); Mean Platelet Volume 10.3 fL (9.4-12.3); Platelet Count 198 X10*3/uL (160-400); Red Blood Count 4.16 X10*6/uL (4.20-5.50); Red Cell Distribution Width 12.2 % (11.0-16.0); White Blood Count 9.3 X10*3/uL (4.8-10.8)
[2024-11-03 14:42] LABS: Appearance Urine Clear; Color Urine Yellow; Glucose Urine UA Negative (Negative); Leukocyte Esterase Urine Negative (Negative); Nitrite Urine Negative (Negative); Specific Gravity - Urine 1.015 (1.005-1.025); Urine Blood Negative (Negative); Urine Ketones Negative (Negative); Urine Protein Negative (Neg-Trace)
[2024-11-03 14:52] LABS: Alanine Aminotransferase 34 U/L (0-31); Albumin Level 4.2 g/dL (3.5-5.0); Alkaline Phosphatase 62 U/L (39-117); Anion Gap 11 (12-20); Aspartate Amino Transferase 36 U/L (5-31); Bilirubin Direct 0.1 mg/dL (0.0-0.5); Bilirubin Total 0.4 mg/dL (0.0-1.0); Blood Urea Nitrogen 20 mg/dL (9-16); Calcium 9.1 mg/dL (8.4-10.2); Carbon Dioxide 27 mmol/L (22-29); Chloride 108 mmol/L (96-108); Cholesterol 141 mg/dL (<200); Estimated Glomerular Filt Rate > 60; Glucose Random 85 mg/dL (60-115); HDL Cholesterol 52 mg/dL (>40); LDL Cholesterol Calculated 49 mg/dL (<100); Sodium 142 mmol/L (135-145); Total Protein 7.3 g/dL (6.5-8.0); Triglycerides 202 mg/dL (<150)
[2024-11-03 14:59] LABS: Thyroid Stimulating Hormone 4.01 uIU/mL (0.32-4.0)
== END 2024-11-03 13:25 | disposition home or self-care (01) ==
LOC: HO.LAB 13:24
PROVIDERS: PCP Internal Medicine; Visit Provider Internal Medicine
DX: F31.9 Bipolar disorder, unspecified (principal); F90.9 Attention-deficit hyperactivity disorder, unspecified type; I10 Essential (primary) hypertension; E55.9 Vitamin D deficiency, unspecified
CPT/HCPCS: 36415; 80048; 80061; 80076; 81003; 84443; 85027; 96127; 99212

== ENCOUNTER 2024-11-03 13:24 | Outpatient (AMB) | payer OTHER, SELFPAY ==
--- NOTE | 2024-11-03 13:28 | MHC.PC.OV ---
Vital Signs 11/03/24 13:29 Height 5 ft 2.5 in Weight 140 lb BMI 25.2 BP 112/68 Blood Pressure Location Lt brachial Position Sitting Pulse 82 Pulse Source Pulse Oximeter Temp 97.1 F Temp Source Temporal Artery Scan Pulse Oximetry (%) 100 Oxygen Delivery Method Room Air Intake Visit Reasons: 6mth f/u Intake Note: Patient is here to follow up on Hypothyroidism, HTN, ADHD. Magnetic Tester Required: No Statistical Engineer: Not Required per policy Accompanied by: Self / Same As Patient Allergies bee venom protein (honey bee) Allergy (Intermediate, Verified 11/03/24 13:48) Anaphylaxis penicillin V Allergy (Unknown, Verified 11/03/24 13:48) almost dies when child afte r PCN while in hospital Penicillins [PENICILLINS] Allergy (Unknown, Verified 11/03/24 13:48) ANAPHYLAXIS Medication List - Last Reconciled 11/03/24 by Tanner Thomson MD acetaminophen (Tylenol Extra Strength) 500 mg PO BID PRN blood pressure monitor As directed cholecalciferol (vitamin D3) 25 mcg PO DAILY clonazepam 0.5 mg PO DAILY PRN dextroamphetamine-amphetamine 20 mg 1 tab PO DAILY dextroamphetamine-amphetamine 25 mg ER 1 cap PO QAM fluticasone propionate 50 mcg/actuation 2 sprays intranasal BID levonorgestrel (Mirena) intrauterine levothyroxine 25 mcg PO DAILY lisinopril 5 mg PO DAILY loratadine (Allergy Relief (loratadine)) 10 mg PO DAILY PRN 30 days omeprazole 20 mg PO DAILY oxcarbazepine 150 mg PO BID quetiapine 300 mg PO BEDTIME Tobacco use date assessed: 11/03/24 Dental Screening Dental Screen Date: 10/13/24 [facility] Medical History High thyroid stimulating hormone (TSH) level Encounter for colonoscopy in patient with family history of colon polyps (~07/23/23) Homeless Menorrhagia, premenopausal Osteoarthritis Anxiety Low TSH level Encounter to establish care ADHD Affective bipolar disorder GERD (gastroesophageal reflux disease) Surgical History History of tubal ligation Hx of breast reduction, elective Hx of appendectomy Family History Maternal Grandmother Colon cancer Other Mental health disorder Substance use disorder Social History Housing: Apartment Alcohol intake: former Patient Tobacco Use Status: Current everyday Tobacco user Tobacco use type: Cigarette Cigarette Packs Per Day: 0.5 Cigarettes Per Day: 7 e-Cigarette/Vaping Use: Currently Using Second Hand Smoke Exposure: Yes Substance Use Type: Marijuana service: No Current occupational status: disabled Cognitive needs: No Hearing needs: No Vision needs: No Female Reproductive History Menstrual Age of Menarche: 8 Questionnaire PHQ-9 Over the last 2 weeks, how often have you been bothered by any of the following problems? 1. Little interest or pleasure in doing things: not at all 2. Feeling down, depressed, or hopeless: several days 3. Trouble falling or staying asleep, or sleeping too much: not at all 4. Feeling tired or having little energy: several days 5. Poor appetite or overeating: not at all 6. Feeling bad about yourself - or that you are a failure or have let yourself or your family down: several days 7. Trouble concentrating on things, such as reading the newspaper or watching television: several days 8. Moving or speaking so slowly that other people could have noticed. Or the opposite - being so fidgety or restless that you have been moving around a lot more than usual: not at all 9. Thoughts that you would be better off or of hurting yourself in some way: not at all Total score: 4 Depression Screening Interpretation: Positive Depression Screening Done: Yes Source: Developed by Drs. Cory Hooper, Payton Stovall, Hunter Spivey and colleagues, with an educational frederick from [employer]. Thrive Questionnaire Date Thrive assessed: 11/03/24 I am a: Patient What is your living situation today?: I do not have a steady places to live I am living in a park Within the past 12 months, did the food you bought not last and you didn't have the money to get more?: Sometimes True Within the past 12 months, did you worry whether your food would run out before you got money to buy more?: Sometimes True Do you have trouble paying for medicines?: No Do you have trouble getting transportation to medical appointments?: No Do you have trouble paying your heating and electricity bill?: No Do you have trouble taking care of your child, family member or friend?: No Do you have trouble with day-to-day activities such as bathing, preparing meals, shopping, managing finances, etc.?: No Are you currently unemployed and looking for a job?: No Are you interested in more education?: No Please select the resources that you would like help with: None Currently or been in a relationship where the following occur: No concerns reported THRIVE Score: 3 AUDIT C Alcohol Use Questionnaire (AUDIT-C) 1. How often do you have a drink containing alcohol?: Never 2. How many drinks containing alcohol do you have on a typical day when you are drinking?: 1 or 2 3. How often do you have six or more drinks on one occasion?: Never Total Score: 0 VIKA-7 AMB Questionnaire VIKA-7 Date VIKA - 7 assessed: 11/03/24 Feeling nervous, anxious, or on edge: 1 = Several days Not being able to stop or control worryin = Not at all Worrying too much about different things: 0 = Not at all Trouble relaxin = Not at all Being so restless that it is hard to sit still: 0 = Not at all Becoming easily annoyed or irritable: 1 = Several days Feeling afraid as if something awful might happen: 0 = Not at all Total VIKA-7 score (0-4 normal; 5-9 mild; 10-14 moderate; 15-21 severe): 2 Source: Developed by Drs. Cory Hooper, Payton Stovall, Hunter Spivey and colleagues, with an educational frederick from [employer]. Physical exam (Primary Care) Vital Signs: Last Vital Signs Temp 97.1 F 11/03/24 13:29 Pulse 82 11/03/24 13:29 BP 112/68 11/03/24 13:29 Pulse Ox 100 11/03/24 13:29 Oxygen Delivery Method Room Air 11/03/24 13:29 BMI result Body Mass Index 25.2 Tobacco/Smoking Status: Tobacco use Status Tobacco use date assessed 11/03/24 11/03/24 13:35 Patient Tobacco Use Status Current everyday Tobacco 11/03/24 13:35 Tobacco use type Cigarette 11/03/24 13:35 e-Cigarette/Vaping Use Currently Using 11/03/24 13:35 PHQ-9: PHQ-9 Score PHQ-9: Total score 4 11/03/24 13:35 Depression Screening Interpretation: Positive Thrive Assessment: Date of Thrive Assessment Date Thrive assessed 11/03/24 11/03/24 13:35 Currently or been in a relationship where the following occur: No concerns reported Coding Level of Care Code Est Pt Level 4 (57943) Complex EM visit Add On G2211 Diagnoses Affective bipolar disorder F31.9 ADHD F90.9 Hypertension I10 Assessment & Plan Assessment & Plan (1) Affective bipolar disorder: Code(s): F31.9 - Bipolar disorder, unspecified Category: Medical Plan: Condition is stable. Continue current meds (2) ADHD: Code(s): F90.9 - Attention-deficit hyperactivity disorder, unspecified type Category: Medical Plan: Spoke to patient. Compliant with meds (3) Hypertension: Code(s): I10 - Essential (primary) hypertension Category: Medical Plan: BP is in range, bw ordered. Plan History of Present Illness The patient is a 49-year-old female presenting with persistent allergy symptoms and difficulty hearing. She reports significant ongoing issues with allergic rhinitis this year, noting it has caused substantial distress, including sinus congestion and ear pressure, affecting her hearing. Previous prescriptions included erythromycin, which was only temporarily effective. Current treatment includes the daily use of Flonase nasal spray and Claritin, though she notes minimal improvement. 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 The patient continues treatment with ADHD medications and actively engages in weekly therapy sessions via [employer] for anxiety management. 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 - Respiratory: Reports severe allergy symptoms worsening this year. - Psychiatric: Reports engagement in therapy for anxiety; reports on ADHD management with ongoing medication. Physical Exam General: Cooperative and healthy appearing Nutritional Appearance: Well nourished Orientation/consciousness: Patient oriented x3 Limitations: No limitations Head: Normal to inspection General: Appearance normal, both eyes and all related structures Neck: Normal visual inspection Chest: Normal palpation of entire chest wall Respiratory: N ormal respiratory effort Neurology: Patient oriented x3, reports anxiety and is undergoing weekly therapy sessions. Results Plan 1. Allergic Rhinitis - Continue nasal spray and Claritin; consider OTC Sudafed. 2. Sensorineural Hearing Loss - Monitor with allergy treatment progress. 3. Anxiety Disorder - Maintain weekly online therapy. 4. Adhd - Continue current medication. 5. Vitamin D Deficiency - Refill and monitor supplementation. 6. Psychoeducational Therapy Engagement - Continue therapy sessions. Discussion Notes During the visit, we discussed the continuation and monitoring of allergy management strategies, specifically the use of Flonase and Claritin. I recommended adding [id number]-[id number] Sudafed to see if it improves nasal congestion and associated hearing issues. We will continue to assess the patient's response to the ADHD medication and her engagement in weekly therapy sessions for anxiety. I advised the patient to monitor her symptoms and evaluate the efficacy of the current treatments. We also covered prescription refills for her Vitamin D supplementation and the necessity to complete blood work due to its absence during the last visit. I confirmed arrangements for follow-up in six months to review her health status and the effectiveness of the current management plan. Patient Instructions - Use Flonase nasal spray as directed daily. - Take Claritin once a day as prescribed. - Try [id number]-yqspafc Sudafed for sinus congestion. - Follow-up with scheduled blood work promptly. - Continue with current ADHD and anxiety therapy sessions. 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 - Return for follow-up in six months. - Seek medical attention earlier if hearing problems worsen or new symptoms arise. Orders: Orders Complete Blood Count no Diff Today F31.9 - Bipolar disorder, unspecified, F90.9 - Attention-deficit hyperactivity disorder, unspecified type, I10 - Essential (primary) hypertension UA and rflx microscopic Today F31.9 - Bipolar disorder, unspecified, F90.9 - Attention-deficit hyperactivity disorder, unspecified type, I10 - Essential (primary) hypertension Basic Metabolic Panel Today F31.9 - Bipolar disorder, unspecified, F90.9 - Attention-deficit hyperactivity disorder, unspecified type, I10 - Essential (primary) hypertension Lipid Panel Today F31.9 - Bipolar disorder, unspecified, F90.9 - Attention-deficit hyperactivity disorder, unspecified type, I10 - Essential (primary) hypertension Liver Panel Today F31.9 - Bipolar disorder, unspecified, F90.9 - Attention-deficit hyperactivity disorder, unspecified type, I10 - Essential (primary) hypertension Thyroid Stimulating Hormone Today F31.9 - Bipolar disorder, unspecified, F90.9 - Attention-deficit hyperactivity disorder, unspecified type, I10 - Essential (primary) hypertension
[2024-11-03 13:29] VITALS: BP 112/68; PULSE 82; TEMP 36.2; O2SAT 100; BMI 25.2
--- OUTSIDE RECORDS SUMMARY | 2024-11-03 14:28 | XMS_ITS ---
Author Organization [facility] Address [address] [place] [phone] Care Team Providers Care Battery Starter Name Role Phone Rissa TRIPATHI, Carol Primary Care Provider Unavail wilmar Pedroza Jr, Golden Elkins REASON FOR VISIT Patient presents today for a COLON SCREENING Encounters Encounter Location Date Provider Diagnosis [facility] [address] [place] [phone] 05/06/2023 Golden Pedroza Jr Plan Of Treatment No Information Progress Notes * CRISTINA KOHLERDOB:[birth year] (49 yo F)Acc No.[id number]:05/06/2023 Progress Notes Patient:?CRISTINA KOHLER Provider:?Golden Pedroza MD :1975???Age:48 Y???Sex:Female D ate:05/06/2023 Address:[address] [place], [place] [id number] Pcp:Carol Kwok NP Subjective: * Chief Complaints: [...] MD Date:?1 07/06/2022 Generated for Filomena park/Trudy/eTransmitting on:?11/03/2024 02:28 PM EDT
--- OUTSIDE RECORDS SUMMARY | 2024-11-03 14:28 | XMS_ITS | Patient Health Record ---
Author Organization [facility] Address [address] [place] [address] Care Team Providers Care Paper Ruler Name Role Phone Rissa TRIPATHI, Carol Primary [...] Problem Status W/U Status Risk Notes Problem 158697936 Esophageal reflux (530.81) Active confirmed Problem 212128312 Vomiting (787.03) Active confirmed Problem 901316072 Gastro-esophagea l reflux disease without esophagitis (K21.9) Active confirmed Problem 78690309 Iron deficiency anemia due to chronic blood loss (D50.0) Active confirmed Plan Of Treatment Future Test Test Name Order Date UPPER GI ENDOSCOPY 11/30/2014 COLONOSCOPY 07/25/2015 Insurance Providers Payer Name Payer Address Payer Phone Subscriber Number Group Number Insured Name Patient Relationship to Insured Coverage Start Date Coverage End Date [facility] [address] [place] [phone] [id number] CRISTINA KOHLER Self - patient is the insured Medical (General) History Medical History History ICD Code ADHD bipolar disorder asthma Denies [place],DM,CVA,renal disease Surgical History Surgery Date(Month/Year) tubal ligation 1996 appendectomy 1981
--- OUTSIDE RECORDS SUMMARY | 2024-11-03 14:29 | XMS_ITS ---
Author Organization [facility] Address [address] [place] [phone] Care Team Providers Care Correctional Officer Captain Name Role Phone Rissa TRIPATHI, Carol Primary Care Provider Unavail wilmar Pedroza Jr, Golden Unavailable REASON FOR VISIT Pt no show Encounters Encounter Location Date Provider Diagnosis [facility] [address] [place] [phone] 05/06/2023 Golden Pedroza Jr Plan Of Treatment No Information Progress Notes * JOSE FCRISTINA PRYORDOB:[birth year] (48 yo F)Acc No.[id number]:05/06/2023 Patient:?CRISTINA KOHLER :1975???Age:48 Y???Sex:Female Address:[address] [place] [address], [address] * true * Date:? Generated for Filomena park/Trudy/eTransmitting on:?11/03/2024 02:28 PM EDT
== END 2024-11-03 13:47 | disposition home or self-care (01) ==
LOC: HO.HMCH 13:25
PROVIDERS: PCP Internal Medicine; Visit Provider Internal Medicine
DX: F31.9 Bipolar disorder, unspecified (principal); F90.9 Attention-deficit hyperactivity disorder, unspecified type; I10 Essential (primary) hypertension

== ENCOUNTER 2025-05-11 07:37 | Outpatient (REF) | payer OTHER, SELFPAY ==
--- OUTSIDE RECORDS SUMMARY | 2025-05-11 07:45 | XMS_ITS | Patient Health Record ---
Author Organization [facility] Address [address] [place] [phone] Care Team Providers Care Farm Mechanic Name Role Phone Rissa TRIPATHI, Carol Primary [...] GM As directed Orally Over the specified time.; Duration: 1 day(s) 07/25/2015 Active Ferrous Sulfate 325 (65 Fe) MG 1 tablet Orally Once a day Active Pantoprazole Sodium 40 MG 1 tablet Orally Once a day; Duration: 30 needs to [facility] office visit. Active OXcarbazepine 600 MG TAKE 1 TABLET BY MOUTH 3 TIMES A DAY Oral; Duration: 30 Active Vyvanse 50 MG TAKE 1 TABLET BY MOUTH AT NOON Oral Once a day Active Problems Problem Type SNOMED Code ICD Code Onset Dates Problem Status W/U Status Risk Notes Problem Esophageal reflux (813772108) Esophageal reflux (530.81) Active confirmed Problem Vomiting (728984013) Vomiting (787.03) Active confirmed Problem Gastro-esophagea l reflux disease without esophagitis (077001819) Gastro-esophage al reflux disease without esophagitis (K21.9) Active confirmed Problem Iron deficiency anemia due to chronic blood loss (532895792) Iron deficiency anemia due to chronic blood loss (D50.0) Active confirmed Plan Of Treatment Future Test Test Name Order Date UPPER GI ENDOSCOPY 11/30/2014 COLONOSCOPY 07/25/2015 Insurance Providers Payer Name Payer Address Payer Phone Subscriber Number Group Number Insured Name Patient Relationship to Insured Coverage Start Date Coverage End Date [facility] [address] [place] [phone] [id number] CRISTINA KOHLER Self - patient is the insured Medical (General) History Medical History History ICD Code ADHD bipolar disorder asthma Denies [place],DM,CVA,renal disease Surgical History Surgery Date(Month/Year) tubal ligation 1996 appendectomy 1981
[2025-05-11 07:51] LABS: MANUAL DIFF FLAG NO
[2025-05-11 08:16] LABS: Hematocrit 38.6 % (37.0-47.0); Hemoglobin 13.5 g/dl (12.0-16.0); Imm Gran Abs Auto 0.03 X10*3/uL (0.00-0.03); Imm Gran Pct Auto 0.3 % (0.0-0.4); Lymphocytes Absolute Auto 3.9 X10*3/uL (1.2-4.9); Mean Corpuscular HGB Conc 35.0 g/dl (31.0-35.0); Mean Corpuscular Hemoglobin 31.2 pg (27.0-33.0); Mean Corpuscular Volume 89.1 fL (80.0-98.0); NRBC Abs Auto 0.000 X10*3/uL (0.0-0.012); NRBC Pct Auto 0.0 /100WBC (0.0-0.2); Platelet Count 245 X10*3/uL (160-400); Red Blood Count 4.33 X10*6/uL (4.20-5.50); White Blood Count 9.5 X10*3/uL (4.8-10.8)
[2025-05-11 08:54] LABS: Cannabinoid Screen Urine POSITIVE (Not Detect)
[2025-05-11 09:22] LABS: Folate 13.4 ng/mL (> or = 4.0); Vitamin B12 525 pg/mL (200-900)
[2025-05-11 12:18] LABS: Alanine Aminotransferase 18 U/L (0-31); Albumin Level 4.4 g/dL (3.5-5.0); Alkaline Phosphatase 57 U/L (39-117); Anion Gap 14 (12-20); Aspartate Amino Transferase 27 U/L (5-31); Blood Urea Nitrogen 18 mg/dL (9-16); Calcium 9.2 mg/dL (8.4-10.2); Carbon Dioxide 27 mmol/L (22-29); Chloride 107 mmol/L (96-108); Cholesterol 161 mg/dL (<200); Estimated Glomerular Filt Rate > 60; HDL Cholesterol 65 mg/dL (>40); Magnesium 2.1 mg/dL (1.6-2.6); Potassium 3.6 mmol/L (3.3-5.1); Sodium 144 mmol/L (135-145); Total Protein 7.1 g/dL (6.5-8.0); Triglycerides 72 mg/dL (<150)
[2025-05-11 12:39] LABS: Ferritin 34 ng/mL (10-250); Thyroid Stimulating Hormone 2.19 uIU/mL (0.32-4.0)
== END 2025-05-11 07:38 | disposition home or self-care (01) ==
LOC: HO.LAB 07:37
PROVIDERS: PCP Internal Medicine; Referring Provider Internal Medicine; Visit Provider Nurse Practitioner Psychiatric/Mental Health
DX: J32.9 Chronic sinusitis, unspecified (principal); F31.0 Bipolar disorder, current episode hypomanic; F90.9 Attention-deficit hyperactivity disorder, unspecified type; F43.10 Post-traumatic stress disorder, unspecified
CPT/HCPCS: 80053; 80061; 80307; 82607; 82728; 82746; 83735; 84443; 85025; 99212

== ENCOUNTER 2025-05-11 14:07 | Outpatient (AMB) | payer OTHER, SELFPAY ==
--- NOTE | 2025-05-11 14:09 | A.OFFPC_ITS ---
Vital Signs 05/11/25 14:11 Height 5 ft 2.5 in Weight 132 lb 4 oz BMI 23.8 BP 130/60 Blood Pressure Location Rt brachial Position Sitting Pulse 100 Pulse Source Pulse Oximeter Temp 97.1 F Temp Source Temporal Artery Scan Pulse Oximetry (%) 94 Oxygen Delivery Method Room Air Intake Visit Reasons: 6 month f/u Intake Note: Patient is here to follow up on Hypothyroidism, HTN, ADHD, GERD. Corsetier Required: No [place] Seamer: Not Required per policy Accompanied by: Self / Same As Patient Allergies bee venom protein (honey bee) Allergy (Intermediate, Verified 05/11/25 14:11) Anaphylaxis penicillin V Allergy (Unknown, Verified 05/11/25 14:11) almost dies when child afte r PCN while in hospital Penicillins (PENICILLINS) Allergy (Unknown, Verified 05/11/25 14:11) ANAPHYLAXIS Tobacco use date assessed: 05/11/25 Dental Screening Dental Screen Date: 10/13/24 [facility] Medical History High thyroid stimulating hormone (TSH) level Encounter for colonoscopy in patient with family history of colon polyps (~07/23/23) Homeless Menorrhagia, premenopausal Osteoarthritis Anxiety Low TSH level Encounter to establish care ADHD Affective bipolar disorder GERD (gastroesophageal reflux disease) Surgical History History of tubal ligation Hx of breast reduction, elective Hx of appendectomy Family History Maternal Grandmother Colon cancer Other Mental health disorder Substance use disorder Social History (Updated 05/11/25 @ 14:15 by PHANI Sanchez) Housing: Apartment Alcohol intake: former Patient Tobacco Use Status: Former Tobacco user Tobacco use type: Cigarette Cigarette Packs Per Day: 0.5 Cigarettes Per Day: 7 e-Cigarette/Vaping Use: Currently Using Second Hand Smoke Exposure: Yes Substance Use Type: Marijuana service: No Current occupational status: disabled Cognitive needs: No Hearing needs: No Vision needs: No Female Reproductive History Menstrual Age of Menarche: 8 Questionnaire Thrive Questionnaire Date Thrive assessed: 11/03/24 I am a: Patient What is your living situation today?: I do not have a steady places to live I am living in a park Within the past 12 months, did the food you bought not last and you didn't have the money to get more?: Sometimes True Within the past 12 months, did you worry whether your food would run out before you got money to buy more?: Sometimes True Do you have trouble paying for medicines?: No Do you have trouble getting transportation to medical appointments?: No Do you have trouble paying your heating and electricity bill?: No Do you have trouble taking care of your child, family member or friend?: No Do you have trouble with day-to-day activities such as bathing, preparing meals, shopping, managing finances, etc.?: No Are you currently unemployed and looking for a job?: No Are you interested in more education?: No Please select the resources that you would like help with: None Currently or been in a relationship where the following occur: No concerns reported THRIVE Score: 3 VIKA-7 AMB Questionnaire VIKA-7 Date VIKA - 7 assessed: 11/03/24 Source: Developed by Drs. Cory Hooper, Payton Stovall, Hunter Spivey and colleagues, with an educational frederick from [employer]. Physical exam (Primary Care) Vital Signs: Last Vital Signs Temp 97.1 F 05/11/25 14:11 Pulse 100 05/11/25 14:11 BP 130/60 05/11/25 14:11 Pulse Ox 94 05/11/25 14:11 Oxygen Delivery Method Room Air 05/11/25 14:11 BMI result Body Mass Index 23.8 Tobacco/Smoking Status: Tobacco use Status Tobacco use date assessed 05/11/25 05/11/25 14:16 Patient Tobacco Use Status Former Tobacco user 05/11/25 14:16 Tobacco use type Cigarette 05/11/25 14:16 e-Cigarette/Vaping Use Currently Using 05/11/25 14:16 Thrive Assessment: Date of Thrive Assessment Date Thrive assessed 11/03/24 05/11/25 14:16 Currently or been in a relationship where the following occur: No concerns reported Coding Level of Care Code Est Pt Level 3 (40692) Complex EM visit Add On G2211 Diagnoses Rhinosinusitis J32.9 Assessment & Plan Assessment & Plan (1) Rhinosinusitis: Code(s): J32.9 - Chronic sinusitis, unspecified Category: Medical Plan: History of Present Illness - The patient is a 50-year-old female presenting with concerns about a possible ear infection. - She reports that sounds seem distorted, as if she is in a hospital. - The patient also reports that her allergies are currently bad but she has a prescription for them. - Regarding health maintenance, recent blood work was normal and she is up-to-date on her mammogram and colonoscopy. - She states she needs to see an eye doctor for her vision but reports nothing too severe. - She declined the influenza vaccine, citing a history of getting the flu after previous vaccinations. 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 Review of Systems - Ears: Reports distorted hearing. - Nose: Reports significant allergy symptoms. - Eyes: Reports needing to see an eye doctor. - General: Denies getting sick often. Physical Exam General: Cooperative and healthy appearing Nutritional Appearance: Well nourished Orientation/consciousness: Patient oriented x3 Limitations: No limitations Head: Normal to inspection General: Appearance normal, both eyes and all related structures Neck: Normal visual inspection Chest: Normal palpation of entire chest wall Respiratory: Normal respiratory effort Neurology: Patient oriented x3 Results - Labs: Recent blood work was reviewed and was normal. - Screening: Mammogram is up-to-date. - Screening: Colonoscopy is up-to-date. Plan - For ear symptoms, recommended taking extra Sudafed to address the fluid. - For allergies, the patient will continue her current prescription as she reports having enough medication. - The patient's recent blood work was normal. - Recommended a follow-up appointment in six months. Discussion Notes I addressed the patient's concern about a possible ear infection and distorted hearing. Upon examination, her ears were clear but had a small amount of fluid, for which I recommended she take extra Sudafed. We reviewed her recent blood work, which was normal, and confirmed she is up-to-date on her mammogram and co lonoscopy. The patient declined the influenza vaccine. I advised her to return for a follow-up in six months. Patient Instructions - Take extra Sudafed for the fluid in your ears. - Continue taking your allergy medication as needed. - Schedule a follow-up appointment in six months.
[2025-05-11 14:11] VITALS: BP 130/60; PULSE 100; TEMP 36.2; O2SAT 94; BMI 23.8
== END 2025-05-11 14:31 | disposition home or self-care (01) ==
LOC: HO.HMCH 14:08
PROVIDERS: PCP Internal Medicine; Visit Provider Internal Medicine
DX: J32.9 Chronic sinusitis, unspecified (principal)